=== PATIENT | male | born 1995 | race Two or more races ===

== ENCOUNTER 2019-02-04 09:29 | Emergency (ER) | payer SELFPAY ==
[2019-02-04 09:57] VITALS: BP 131/83
--- NOTE | 2019-02-04 10:27 | CR ---
[id number] RAD/RAD Ankle Right 2V; [id number] RAD/RAD Foot Right 3V Min Exam: RAD Ankle Right 2V, RAD Foot Right 3V Min Indication:PAIN TOP OF FOOT/ANKLE, NO TRAUMA. Comparison: No prior imaging for comparison. 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 Fragment measures approximately 5 mm craniocaudal dimension. Joint space remains well-preserved throughout the hindfoot. Valgus angulation of the second through fourth MTP joints. Bones are otherwise in normal alignment throughout the forefoot and midfoot. No acute fracture, AVN, or erosive changes. Joint spaces are well-preserved. Impression: No acute findings in the foot. Chronic findings, including prior deltoid avulsion injury are described above. Jake Hernandez MD 02/04/19 4111 Thank you for allowing us to participate in the care of your patient.
--- NOTE | 2019-02-04 11:01 | EDM.PDOC ---
ED HPI GENERAL MEDICAL PROBLEM - General Chief Complaint: Lower Extremity Injury/Pain Stated Complaint: RT ANKLE PAIN Time Seen by Provider: 02/04/19 09:34 Source of Information: Reports: Patient History Limitations: Reports: No Limitations - History of Present Illness INITIAL COMMENTS - FREE TEXT/NARRATIVE: PtJeimy presents to ER with complaints of pain to dorsal/lateral foot and ankle pain. He denies any trauma to the area. 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 He states that he has a lot of pain with flexion/extension of the ankle and with dorsiflexion/ plantarflexion of the foot. He denies spraining the ankle or any specific injury to the area. He states that the discomfort is located in the foot and ankle. He denies any pain to the knee, remainder of the lower leg or hip. He states that he has leg length discrepancy and sees a chiropractor for this. Onset: Today Onset Date: 02/04/19 Location: Reports: Lower Extremity, Right Quality: Reports: Ache, Throbbing Worsens with: Reports: Movement Treatments REFRIGERATION BRAZER/SOLDERER: Reports: Other (see below) Other Treatments REFRIGERATION BRAZER/SOLDERER: panadol voltaren cream Right Foot Pain Score (Numeric/FACES): 6 - Related Data Allergies Allergy/AdvReac Type Severity Reaction Status Date / Time indomethacin [From Indocin] Allergy Hives Verified 02/04/19 09:51 Penicillins Allergy Hives Verified 02/04/19 09:51 Home Meds: Home Meds . [No Known Home Meds] 11/29/15 [History] Past Medical History - Past Health History Medical/Surgical History: Denies Medical/Surgical History HEENT History: Reports: Otitis Media Cardiovascular History: Reports: None Respiratory History: Reports: None Gastrointestinal History: Reports: Hemorrhoids Genitourinary History: Reports: None Musculoskeletal History: Reports: Gout Neurological History: Reports: None Psychiatric History: Reports: None Endocrine/Metabolic History: Reports: None, Obesity/BMI 30+ Hematologic History: Reports: None Immunologic History: Reports: None Oncologic (Cancer) History: Reports: None Dermatologic History: Reports: Other (See Below) Other Dermatologic History: morphea - Infectious Disease History Infectious Disease History: Reports: None - Past Surgical History Head Surgeries/Procedures: Reports: None Musculoskeletal Surgical History: Reports: Other (See Below) Other Musculoskeletal Surgeries/Procedures:: vericose vein surgery Social & Family History - Family History Family Medical History: Noncontributory - Tobacco Use Smoking Status *Q: Never Smoker - Caffeine Use Caffeine Use: Reports: None - Recreational Drug Use Recreational Drug Use: No - Living Situation & Occupation Living situation: Reports: with Family Occupation: Employed Review of Systems - Review of Systems Review Of Systems: See Below Musculoskeletal: Reports: Joint Pain (ankle/foot) ED EXAM, GENERAL - Physical Exam Exam: See Below Extremities: Joint Swelling, Other (pain to R foot over the mid and lateral tarsal bones. Minimal swelling to the area. No crepitus. No erythema to the area. CMS intact to the extremity.) Course - Vital Signs Last Recorded V/S: Last Vital Signs Temp 37.4 C 02/04/19 09:30 Pulse 88 02/04/19 09:30 Resp 16 02/04/19 09:30 BP 131/83 02/04/19 09:30 Pulse Ox 100 02/04/19 09:30 - Orders/Labs/Meds Orders: Active Orders 24 hr Category Date Time Status Ankle 2V Rt [CR] Stat Exams 02/04/19 09:52 Ordered - Radiology Interpretation Free Text/Narrative:: Chronic deltoid avulsion at the tip of the medial malleolus. Fragment measures approx. 5 mm. Joint space preserved throughout hindfoot. Valgus angulation of 2nd through 4th MTP joints. Bones are otherwise aligned with no acute injury noted. No evidence of erosion or avascular necrosis noted. Departure - Departure Time of Disposition: 11:04 Disposition: Home, Self-Care 01 Clinical Impression: Right ankle instability - Discharge Information Instructions: Walking Boot, Adult, Subtalar Instability Referrals: PCP,None [Primary Care Provider] - Forms: ED Department Discharge Additional Instructions: Establish care locally. You will need a referral to podiatry. Wear boot especially if walking/bearing weight on the extremity. Elevate foot as much as possible. Ice painful area for 10-15 min every 1-2 hours. Naproxen 800mg every 8 hours for pain. - My Orders Last 24 Hours: My Active Orders 02/04/19 09:52 Ankle 2V Rt [CR] Stat - Assessment/Plan Last 24 Hours: My Active Orders 02/04/19 09:52 Ankle 2V Rt [CR] Stat Plan: Establish care locally. You will need a referral to podiatry. Wear boot especially if walking/bearing weight on the extremity. Elevate foot as much as possible. Ice painful area for 10-15 min every 1-2 hours. Naproxen 800mg every 8 hours for pain.
== END 2019-02-04 11:15 | disposition home or self-care (01) ==
LOC: VM.ED 09:29
DX: M25.571 Pain in right ankle and joints of right foot (principal); Z88.0 Allergy status to penicillin; Z88.8 Allergy status to other drugs, medicaments and biological substances
CPT/HCPCS: 73600-RT; 73630-RT; 99283-25

== ENCOUNTER 2019-10-06 06:45 | Emergency (ER) | payer BC ==
[2019-10-06 06:59] VITALS: BP 108/78; PULSE 68
[2019-10-06] MEDS ORDERED: Ketorolac 60 MG/2 ML SDV IM ONE (07:05)
--- NOTE | 2019-10-06 07:12 | EDM.PDOC ---
ED HPI GENERAL MEDICAL PROBLEM - General Chief Complaint: Abdominal Pain Stated Complaint: Abdominal pain Time Seen by Provider: 10/06/19 07:00 Source of Information: Reports: Patient History Limitations: Reports: No Limitations - History of Present Illness INITIAL COMMENTS - FREE TEXT/NARRATIVE: RUQ abdominal pain started at 0500. He took some pepcid and antonette tea and now it is feeling better. He was here 08/05 for same complaints, labs were done but he refused any other testing. stated they gave me a bunch of narcotics. Today again he is refusing most interventions. Onset: Today Location: Reports: Abdomen (RUQ radiating to his back) Quality: Reports: Ache, Burning Severity: Moderate Improves with: Reports: None Worsens with: Reports: None Associated Symptoms: Reports: No Other Symptoms Right Upper Abdomen Pain Score (Numeric/FACES): 7 - Related Data Allergies Allergy/AdvReac Type Severity Reaction Status Date / Time indomethacin [From Indocin] Allergy Hives Verified 10/06/19 06:53 Penicillins Allergy Hives Verified 10/06/19 06:53 Home Meds: Home Meds . [No Known Home Meds] 11/29/15 [History] Past Medical History - Past Health History Medical/Surgical History: Denies Medical/Surgical History HEENT History: Reports: Otitis Media Cardiovascular History: Reports: None Respiratory History: Reports: None Gastrointestinal History: Reports: Hemorrhoids Genitourinary History: Reports: None Musculoskeletal History: Reports: Gout Neurological History: Reports: None Psychiatric History: Reports: None Endocrine/Metabolic History: Reports: None, Obesity/BMI 30+ Hematologic History: Reports: None Immunologic History: Reports: None Oncologic (Cancer) History: Reports: None Dermatologic History: Reports: Other (See Below) Other Dermatologic History: morphea - Infectious Disease History Infectious Disease History: Reports: None - Past Surgical History Head Surgeries/Procedures: Reports: None Musculoskeletal Surgical History: Reports: Other (See Below) Other Musculoskeletal Surgeries/Procedures:: vericose vein surgery Social & Family History - Family History Family Medical History: Noncontributory - Caffeine Use Caffeine Use: Reports: None - Living Situation & Occupation Living situation: Reports: with Family Occupation: Employed ED ROS GENERAL - Review of Systems Review Of Systems: See Below Constitutional: Reports: No Symptoms Respiratory: Reports: No Symptoms Cardiovascular: Reports: No Symptoms Endocrine: Reports: No Symptoms GI/Abdominal: Reports: Abdominal Pain ED EXAM, GI/ABD - Physical Exam Exam: See Below Exam Limited By: No Limitations Respiratory/Chest: Lungs Clear Cardiovascular: Regular Rate, Rhythm GI/Abdominal Exam: Normal Bowel Sounds, Soft, Tender (epigastric area and RUQ ) Course - Vital Signs Last Recorded V/S: Last Vital Signs Temp 36.2 C 10/06/19 06:45 Pulse 68 10/06/19 06:45 Resp 16 10/06/19 06:45 BP 108/78 10/06/19 06:45 Pulse Ox 98 10/06/19 06:45 - Orders/Labs/Meds Meds: Medications Discontinued Medications Generic Name Dose Route Start Last Admin Trade Name Freq PRN Reason Stop Dose Admin Ketorolac Tromethamine 60 mg 10/06/19 07:05 Toradol IM 10/06/19 07:06 ONETIME ONE - Re-Assessments/Exams Free Text/Narrative Re-Assessment/Exam: 10/06/19 07:14 Patient offered a GI cocktail but refused. He did agree to toradol injection. Stated he would be willing to do an abdominal ultrasound however this is not available today. Departure - Departure Time of Disposition: 07:35 Disposition: Home, Self-Care 01 Condition: Good Clinical Impression: Cholecystitis Acid reflux disease Qualifiers: Esophagitis presence: with esophagitis Qualified Code(s): K21.0 - Gastro- esophageal reflux disease with esophagitis - Discharge Information *PRESCRIPTION DRUG MONITORING PROGRAM REVIEWED*: No *COPY OF PRESCRIPTION DRUG MONITORING REPORT IN PATIENT DORIAN: No Instructions: Heartburn, [id number] Sepsis Event Note - Evaluation Sepsis Screening Result: No Definite Risk - Focused Exam Vital Signs: Vital Signs Temp Pulse Resp BP Pulse Ox 10/06/19 06:45 36.2 C 68 16 108/78 98 Date Exam was Performed: 10/06/19 Time Exam was Performed: 07:07
== END 2019-10-06 07:25 | disposition home or self-care (01) ==
LOC: VM.ED 06:45
DX: K21.0 Gastro-esophageal reflux disease with esophagitis (principal); K81.9 Cholecystitis, unspecified; M10.9 Gout, unspecified; E66.9 Obesity, unspecified; Z68.33 Body mass index [BMI] 33.0-33.9, adult; Z88.0 Allergy status to penicillin; Z88.8 Allergy status to other drugs, medicaments and biological substances
CPT/HCPCS: 96372; 99283-25; J1885

== ENCOUNTER 2019-10-16 03:07 | Emergency (ER) | payer BC ==
[2019-10-16 03:12] VITALS: BP 134/77; PULSE 74
[2019-10-16] MEDS: methylPREDNISolone Sodium Succinate 125 MG/2 ML SDV IVPUSH ONE (03:33)
[2019-10-16] MEDS: Take Home: Acetaminophen/Codeine 300 MG/30 MG, 5 Tab Pack PO ONE (03:33)
[2019-10-16] MEDS: Ketorolac 30 MG/ML SDV IM ONE (03:33)
--- NOTE | 2019-10-16 04:59 | EDM.PDOC ---
ED HPI GENERAL MEDICAL PROBLEM - General Chief Complaint: Lower Extremity Injury/Pain Stated Complaint: gout flareup Time Seen by Provider: 10/16/19 03:22 Source of Information: Reports: Patient History Limitations: Reports: No Limitations - History of Present Illness INITIAL COMMENTS - FREE TEXT/NARRATIVE: Pt. presents to ER with L great toe pain. Pt. states that he has a history of gout and states that he is having a flare-up. Denies any redness to the area. No fever or chills. Denies any trauma to the area. He states that his last flare -up was approx. a year ago. Onset: Today Onset Date: 10/16/19 Location: Reports: Lower Extremity, Left Quality: Reports: Sharp, Throbbing Left Toe-Hailux Pain Score (Numeric/FACES): 9 - Related Data Allergies Allergy/AdvReac Type Severity Reaction Status Date / Time indomethacin [From Indocin] Allergy Swelling Verified 10/16/19 03:08 Penicillins Allergy Hives Verified 10/16/19 03:08 Home Meds: Home Meds Black Elder Holcomb 1 tab PO BID 10/16/19 [History] Past Medical History - Past Health History Medical/Surgical History: Denies Medical/Surgical History HEENT History: Reports: Otitis Media Cardiovascular History: Reports: None Respiratory History: Reports: None Gastrointestinal History: Reports: Hemorrhoids Genitourinary History: Reports: None Musculoskeletal History: Reports: Gout Neurological History: Reports: None Psychiatric History: Reports: None Endocrine/Metabolic History: Reports: None, Obesity/BMI 30+ Hematologic History: Reports: None Immunologic History: Reports: None Oncologic (Cancer) History: Reports: None Dermatologic History: Reports: Other (See Below) Other Dermatologic History: morphea - Infectious Disease History Infectious Disease History: Reports: None - Past Surgical History Head Surgeries/Procedures: Reports: None Musculoskeletal Surgical History: Reports: Other (See Below) Other Musculoskeletal Surgeries/Procedures:: vericose vein surgery Social & Family History - Family History Family Medical History: Noncontributory - Tobacco Use Smoking Status *Q: Never Smoker - Caffeine Use Caffeine Use: Reports: None - Living Situation & Occupation Living situation: Reports: with Family Occupation: Employed Review of Systems - Review of Systems Review Of Systems: Comprehensive ROS is negative, except as noted in HPI. ED EXAM, GENERAL - Physical Exam Exam: See Below Extremities: Normal Inspection, Limited Range of Motion, Other (Pain with palpation/movement of L great toe.) Course - Vital Signs Last Recorded V/S: Last Vital Signs Temp 36.2 C 10/16/19 03:09 Pulse 74 10/16/19 03:09 Resp 18 10/16/19 03:09 BP 134/77 10/16/19 03:09 Pulse Ox 98 10/16/19 03:09 - Orders/Labs/Meds Meds: Medications Discontinued Medications Generic Name Dose Route Start Last Admin Trade Name Tank PRN Reason Stop Dose Admin Acetaminophen/Codeine Phosphate 1 packet 10/16/19 03:25 10/16/19 03:33 Take Home: Acetam/Codeine 300-30 Mg, 5 Pack PO 10/16/19 03:26 1 packet ONETIME ONE Administration Ketorolac Tromethamine 30 mg 10/16/19 03:25 10/16/19 03:33 Toradol IM 10/16/19 03:26 30 mg ONETIME ONE Administration Methylprednisolone Sodium Succinate 125 mg 10/16/19 03:24 10/16/19 03:33 Solu-Medrol IVPUSH 10/16/19 03:25 125 mg ONETIME ONE Administration Departure - Departure Time of Disposition: 04:00 Disposition: Home, Self-Care 01 Clinical Impression: Gout - Discharge Information Instructions: Gout, [id number], Naproxen and naproxen sodium oral immediate- release tablets, Prednisone tablets Referrals: PCP,Unobtain [Primary Care Provider] - Forms: ED Department Discharge Additional Instructions: Naproxen 500mg 1 twice daily as needed for pain Tylenol #3 1 every 6 hours as needed for pain Medrol dose melinda Take as prescribed on the package Drink plenty of fluids Follow-up in clinic in 7-10 days Sepsis Event Note - Evaluation Sepsis Screening Result: No Definite Risk - Focused Exam Vital Signs: Vital Signs Temp Pulse Resp BP Pulse Ox 10/16/19 03:09 36.2 C 74 18 134/77 98 Date Exam was Performed: 10/16/19 Time Exam was Performed: 04:55 - Assessment/Plan Plan: Naproxen 500mg 1 twice daily as needed for pain Tylenol #3 1 every 6 hours as needed for pain Medrol dose melinda Take as prescribed on the package Drink plenty of fluids Follow-up in clinic in 7-10 days
== END 2019-10-16 04:04 | disposition home or self-care (01) ==
LOC: VM.ED 03:07
DX: M10.9 Gout, unspecified (principal); Z88.0 Allergy status to penicillin; Z88.6 Allergy status to analgesic agent
CPT/HCPCS: 96372; 96374; 99283; A9270; J1885; J2930

== ENCOUNTER 2019-11-30 06:58 | Emergency (ER) | payer BC ==
[2019-11-30] MEDS ORDERED: Sodium Chloride 0.9% 10 ML Syringe FLUSH PRN (07:20)
--- NOTE | 2019-11-30 07:38 | EDM.PDOC ---
<ZandraDonnie dutton W - Last Filed: 11/30/19 07:49> ED HPI GENERAL MEDICAL PROBLEM - General Stated Complaint: ABDOMAL PAIN RT SIDE BACK Time Seen by Provider: 11/30/19 07:00 Source of Information: Reports: Patient History Limitations: Reports: No Limitations - History of Present Illness INITIAL COMMENTS - FREE TEXT/NARRATIVE: Pt. presents to ER with acute onset severe RUQ abdominal pain today. He states that this started approx. 1 hour before coming in to ER. Pt. states that he has had discomfort similar to this in the past and has been told it is caused by his gallbladder. He has not eaten today, but states that the symptoms are often present postprandially after a fatty meal. Pt. denies any dark colored urine. No chhaya-colored stools. Pt. has not had any ultrasound or other imaging of his abdomen to determine conclusively the cause of his discomfort. Pt. denies any substernal chest pain. No jaw, arm, neck or back pain. No fever or chills. He does complain of nausea. He states that he does not have a PCP, but would like his test results forwarded to [facility] as he wants surgery there if it is his gallbladder. Onset: Today Location: Reports: Abdomen Quality: Reports: Sharp, Stabbing Severity: Severe Worsens with: Reports: Eating Associated Symptoms: Reports: Nausea/Vomiting. Denies: Confusion, Chest Pain, Cough, Diaphoresis, Fever/Chills, Rash, Shortness of Breath - Related Data Allergies Allergy/AdvReac Type Severity Reaction Status Date / Time indomethacin [From Indocin] Allergy Swelling Verified 11/30/19 07:50 Penicillins Allergy Hives Verified 11/30/19 07:50 Home Meds: Home Meds Black Elder Holcomb 1 tab PO BID 10/16/19 [History] Past Medical History - Past Health History Medical/Surgical History: Denies Medical/Surgical History HEENT History: Reports: Otitis Media Cardiovascular History: Reports: None Respiratory History: Reports: None Gastrointestinal History: Reports: Hemorrhoids Genitourinary History: Reports: None Musculoskeletal History: Reports: Gout Neurological History: Reports: None Psychiatric History: Reports: None Endocrine/Metabolic History: Reports: None, Obesity/BMI 30+ Hematologic History: Reports: None Immunologic History: Reports: None Oncologic (Cancer) History: Reports: None Dermatologic History: Reports: Other (See Below) Other Dermatologic History: morphea - Infectious Disease History Infectious Disease History: Reports: None - Past Surgical History Head Surgeries/Procedures: Reports: None Musculoskeletal Surgical History: Reports: Other (See Below) Other Musculoskeletal Surgeries/Procedures:: vericose vein surgery Social & Family History - Family History Family Medical History: Noncontributory - Caffeine Use Caffeine Use: Reports: None - Living Situation & Occupation Living situation: Reports: with Family Occupation: Employed ED ROS GENERAL - Review of Systems Review Of Systems: See Below Constitutional: Reports: No Symptoms. Denies: Fever, Chills HEENT: Reports: No Symptoms Respiratory: Reports: No Symptoms Cardiovascular: Reports: No Symptoms Endocrine: Reports: No Symptoms GI/Abdominal: Reports: Abdominal Pain, Nausea, Vomiting. Denies: Black Stool, Bloody Stool, Constipation, Diarrhea, Distension, Hematemesis, Hematochezia, Melena : Reports: No Symptoms Musculoskeletal: Reports: No Symptoms Skin: Reports: No Symptoms Neurological: Reports: No Symptoms Psychiatric: Reports: No Symptoms Hematologic/Lymphatic: Reports: No Symptoms Immunologic: Reports: No Symptoms ED EXAM, GENERAL - Physical Exam Exam: See Below Exam Limited By: No Limitations General Appearance: Alert, WD/WN, No Apparent Distress Eye Exam: Bilateral Eye: EOMI, PERRL Nose: Normal Inspection, No Blood Throat/Mouth: Normal Inspection, Normal Lips, Normal Teeth, Normal Gums, Normal Oropharynx, Normal Voice, No Airway Compromise Head: Atraumatic, Normocephalic Respiratory/Chest: No Respiratory Distress, Lungs Clear, Normal Breath Sounds, No Accessory Muscle Use, Chest Non-Tender Cardiovascular: Normal Peripheral Pulses, Regular Rate, Rhythm, No Edema, No Gallop, No JVD, No Murmur, No Rub Peripheral Pulses: 4+: Radial (L) GI/Abdominal: Soft, No Organomegaly, No Mass, Guarding, Tender (+ Westbrook's sign) . No: Mass (Male) Exam: Deferred Rectal (Males) Exam: Deferred Back Exam: Normal Inspection, Full Range of Motion Extremities: Normal Inspection, Normal Range of Motion, Non-Tender, No Pedal Edema, Normal Capillary Refill Neurological: Alert, Oriented, CN II-XII Intact, Normal Cognition, Normal Gait, Normal Reflexes, No Motor/Sensory Deficits Psychiatric: Normal Affect, Normal Mood Skin Exam: Warm, Dry, Intact, Normal Color, Pallor Course - Vital Signs Last Recorded V/S: Last Vital Signs Temp 37.0 C 11/30/19 07:05 Pulse 67 11/30/19 07:05 Resp 16 11/30/19 07:05 BP 136/75 11/30/19 07:05 Pulse Ox 97 11/30/19 07:05 - Orders/Labs/Meds Orders: Active Orders 24 hr Category Date Time Status Sodium Chloride 0.9% [Saline Flush] Med 11/30/19 07:20 Active 10 ml FLUSH ASDIRECTED PRN Peripheral IV Insertion Adult [OM.PC] Routine Oth 11/30/19 07:21 Ordered Medication Orders Sodium Chloride (Saline Flush) 10 ml FLUSH ASDIRECTED PRN PRN Reason: Keep Vein Open Labs: Laboratory Tests 11/30/19 11/30/19 11/30/19 Range/Units 07:35 07:35 07:35 WBC 9.1 (4.0-10.0) x10^3/uL RBC 5.15 (4.5-6.0) x10^6/uL Hgb 15.7 (14.0-18.0) g/dL Hct 45.4 (40.0-52.0) % MCV 88.2 (78.0-93.0) fL MCH 30.5 (26.0-32.0) pg MCHC 34.6 (32.0-36.0) g/dL RDW Coeff of Juan Carlos 12.8 (10.0-15.0) % Plt Count 261 (130-400) x10^3/uL Neut % (Auto) 56.8 (50.0-80.0) % Lymph % (Auto) 32.9 (25.0-50.0) % Jackson % (Auto) 8.0 (2.0-11.0) % Eos % (Auto) 2.0 (0.0-4.0) % Baso % (Auto) 0.3 (0.2-1.2) % PT 10.0 (10.0-12.8) SEC INR 0.9 L (2.0-3.5) Sodium 142 (136-145) mmol/L Potassium 3.6 (3.5-5.1) mmol/L Chloride 105 (98-107) mmol/L Carbon Dioxide 29 (21-32) mmol/L Anion Gap 11.6 (10-20) mmol/L BUN 19 H (7-18) mg/dL Creatinine 1.3 (0.70-1.30) mg/dL Est Cr Clr Drug Dosing 108.52 mL/min Estimated GFR (MDRD) > 60 Glucose 95 (74-106) mg/dL Calcium 8.6 (8.5-10.1) mg/dL Corrected Calcium 8.92 (8.5-10.1) mg/dL Magnesium 1.9 (1.8-2.4) mg/dL Total Bilirubin 0.3 (0.2-1.0) mg/dL AST 16 (15-37) U/L ALT 32 (16-63) U/L Alkaline Phosphatase 56 (46-116) U/L C-Reactive Protein 0.3 (<=0.9) mg/dL Total Protein 7.3 (6.4-8.2) g/dL Albumin 3.6 (3.4-5.0) g/dL Globulin 3.7 Albumin/Globulin Ratio 0.97 Amylase 38 (25-115) U/L Lipase 141 (73-393) U/L Urine Color (YELLOW) Urine Appearance (CLEAR) Urine pH (5.0-8.0) Ur Specific Jesse Urine Protein (NEGATIVE) mg/dL Urine Glucose (UA) (NEGATIVE) mg/dL Urine Ketones (NEGATIVE) mg/dL Urine Occult Blood (NEGATIVE) Urine Nitrite (NEGATIVE) Urine Bilirubin (NEGATIVE) Urine Urobilinogen (0.2) EU/dL Ur Leukocyte Esterase (NEGATIVE) 11/30/19 Range/Units 08:49 WBC (4.0-10.0) x10^3/uL RBC (4.5-6.0) x10^6/uL Hgb (14.0-18.0) g/dL Hct (40.0-52.0) % MCV (78.0-93.0) fL MCH (26.0-32.0) pg MCHC (32.0-36.0) g/dL RDW Coeff of Juan Carlos (10.0-15.0) % Plt Count (130-400) x10^3/uL Neut % (Auto) (50.0-80.0) % Lymph % (Auto) (25.0-50.0) % Jackson % (Auto) (2.0-11.0) % Eos % (Auto) (0.0-4.0) % Baso % (Auto) (0.2-1.2) % PT (10.0-12.8) SEC INR (2.0-3.5) Sodium (136-145) mmol/L Potassium (3.5-5.1) mmol/L Chloride (98-107) mmol/L Carbon Dioxide (21-32) mmol/L Anion Gap (10-20) mmol/L BUN (7-18) mg/dL Creatinine (0.70-1.30) mg/dL Est Cr Clr Drug Dosing mL/min Estimated GFR (MDRD) Glucose (74-106) mg/dL Calcium (8.5-10.1) mg/dL Corrected Calcium (8.5-10.1) mg/dL Magnesium (1.8-2.4) mg/dL Total Bilirubin (0.2-1.0) mg/dL AST (15-37) U/L ALT (16-63) U/L Alkaline Phosphatase (46-116) U/L C-Reactive Protein (<=0.9) mg/dL Total Protein (6.4-8.2) g/dL Albumin (3.4-5.0) g/dL Globulin Albumin/Globulin Ratio Amylase (25-115) U/L Lipase (73-393) U/L Urine Color Yellow (YELLOW) Urine Appearance Clear (CLEAR) Urine pH 5.5 (5.0-8.0) Ur Specific Jesse >=1.030 Urine Protein Negative (NEGATIVE) mg/dL Urine Glucose (UA) Negative (NEGATIVE) mg/dL Urine Ketones Negative (NEGATIVE) mg/dL Urine Occult Blood Negative (NEGATIVE) Urine Nitrite Negative (NEGATIVE) Urine Bilirubin Negative (NEGATIVE) Urine Urobilinogen 0.2 (0.2) EU/dL Ur Leukocyte Esterase Negative (NEGATIVE) Meds: Medications Generic Name Dose Route Start Last Admin Trade Name Freq PRN Reason Stop Dose Admin Sodium Chloride 10 ml 11/30/19 07:20 Saline Flush FLUSH ASDIRECTED PRN Keep Vein Open Discontinued Medications Generic Name Dose Route Start Last Admin Trade Name Freq PRN Reason Stop Dose Admin Hydromorphone HCl 1 mg 11/30/19 07:22 11/30/19 07:40 Dilaudid IVPUSH 11/30/19 07:23 1 mg ONETIME ONE Administration Sodium Chloride 1,000 mls @ 1,000 mls/hr 11/30/19 07:22 11/30/19 07:39 Normal Saline IV 11/30/19 08:21 1,000 mls/hr .BOLUS ONE Administration Ketorolac Tromethamine 15 mg 11/30/19 07:23 11/30/19 07:39 Toradol IVPUSH 11/30/19 07:24 15 mg ONETIME ONE Administration Ondansetron HCl 4 mg 11/30/19 07:22 11/30/19 07:40 Zofran IVPUSH 11/30/19 07:23 4 mg ONETIME ONE Administration Departure - Departure Disposition: Home, Self-Care 01 Clinical Impression: RUQ pain - Discharge Information Instructions: Cholelithiasis, [id number], Gallbladder Eating Plan Referrals: PCP,None [Primary Care Provider] - Forms: ED Department Discharge, ED Return to Work/School Form Additional Instructions: Nothing to eat or drink after you leave the ED and return at 1pm for an Ultrasound of the gallbladder. I will visit with you after the US is done and talk further about the plan. After your visit, low fat diet and stay away from spicy food. Increase fluids as much as possible. Tylenol and or ibuprofen as needed for pain. If pain not controlled with above. Superior 5/325, 1 tablet every 6 hrs with food as needed for pain. Caution sedation. RX given to the patient. #12. Return to the ED if new or worsening symptoms. Follow up with PCP in the next 4-6 days if not improving sooner if worse. Sepsis Event Note - Focused Exam Vital Signs: Vital Signs Temp Pulse Resp BP Pulse Ox 11/30/19 07:05 37.0 C 67 16 136/75 97 Date Exam was Performed: 11/30/19 Time Exam was Performed: 07:49 <Jonny Castillo - Last Filed: 11/30/19 10:13> ED EXAM, GENERAL - Physical Exam GI/Abdominal: Tender Course - Re-Assessments/Exams Free Text/Narrative Re-Assessment/Exam: 11/30/19 10:08 Assumed care of the patient at 0800 from Donnie Silva PA-C. Please see his note assessment that I agree with and also his treatments previous. THe patient is now resting pain free. HIs abd is soft none tender negative Owings sign. NO nausea no vomiting. I reviewed his normal lab results with the patient. This is most likely biliary colic. Will discharge NPO at this time and US at 1300 today and follow up accordingly. He is comfortable with this plan and his questions answered. Departure - Departure Time of Disposition: 09:00 Sepsis Event Note - Focused Exam Date Exam was Performed: 11/30/19 Time Exam was Performed: 10:08
[2019-11-30] MEDS: Ketorolac 15 MG/ML SDV IVPUSH ONE (07:39)
[2019-11-30] MEDS: Sodium Chloride 0.9% 1,000 ML IV ONE (07:39)
[2019-11-30] MEDS: Ondansetron 4 MG/2 ML SDV IVPUSH ONE (07:40)
[2019-11-30] MEDS: HYDROmorphone 1 MG/ML Syringe IVPUSH ONE (07:40)
[2019-11-30 07:57] VITALS: BP 136/75; PULSE 67
[2019-11-30 08:07] LABS: CHLORIDE,CL 105 mmol/L (98-107); SODIUM,NA 142 mmol/L (136-145)
[2019-11-30 08:08] LABS: ANION GAP 11.6 mmol/L (10-20)
[2019-12-05] MEDS ORDERED: SUMAtriptan 6 MG/0.5 ML SDV SUBCUT ONE (13:41)
[2019-12-05] MEDS ORDERED: LORazepam 2 MG/ML SDV IVPUSH ONE (13:41)
[2019-12-05] MEDS ORDERED: Ketorolac 30 MG/ML SDV IVPUSH ONE (13:41)
== END 2019-11-30 09:30 | disposition home or self-care (01) ==
LOC: VM.ED 06:58
DX: R10.11 Right upper quadrant pain (principal); E66.9 Obesity, unspecified; Z68.42 Body mass index [BMI] 45.0-49.9, adult; Z88.0 Allergy status to penicillin; Z88.8 Allergy status to other drugs, medicaments and biological substances
CPT/HCPCS: 36415; 80053; 81003; 82150; 83690; 83735; 85025; 85610; 86140; 96361; 96374; 96375; 99284-25; J1170; J1885; J2405; J7030

== ENCOUNTER 2020-01-04 06:41 | Emergency (ER) | payer BC ==
[2020-01-04] MEDS ORDERED: Sodium Chloride 0.9% 10 ML Syringe FLUSH PRN (06:49)
--- NOTE | 2020-01-04 06:54 | EDM.PDOC ---
ED HPI GENERAL MEDICAL PROBLEM - General Chief Complaint: Abdominal Pain Stated Complaint: Gallbladder Attack Time Seen by Provider: 01/04/20 06:45 Source of Information: Reports: Patient History Limitations: Reports: No Limitations - History of Present Illness INITIAL COMMENTS - FREE TEXT/NARRATIVE: Pt. presents to ER with complaints of RUQ abdominal pain. Pt. has a diagnosed history of cholelithiasis and was seen for a flare-up of pain on November 29. He underwent a gallbladder US that day and was diagnosed with cholelithiasis without cholecystitis. He states that he saw Dr. Acuna, surgeon at [facility], but has deferred having surgery at this time, as his significant other recently underwent meniscus surgery. Pt. states that he last ate at approx. 9PM, and it included sandwiches and canned pasta. He states that the discomfort started this AM, but he denies eating today. Denies any fever or chills. Complains of nausea but no vomiting. Denies any substernal chest pain, shortness of breath, or other worrisome signs or symptoms. Onset: Today Onset Date: 01/04/20 Onset Time: 05:00 Location: Reports: Abdomen Severity: Severe - Related Data Allergies Allergy/AdvReac Type Severity Reaction Status Date / Time indomethacin [From Indocin] Allergy Swelling Verified 01/04/20 06:49 Penicillins Allergy Hives Verified 01/04/20 06:49 Home Meds: Home Meds Black Elder Holcomb 1 tab PO BID 10/16/19 [History] Past Medical History - Past Health History Medical/Surgical History: Denies Medical/Surgical History HEENT History: Reports: Otitis Media Cardiovascular History: Reports: None Respiratory History: Reports: None Gastrointestinal History: Reports: Hemorrhoids Genitourinary History: Reports: None Musculoskeletal History: Reports: Gout Neurological History: Reports: None Psychiatric History: Reports: None Endocrine/Metabolic History: Reports: None, Obesity/BMI 30+ Hematologic History: Reports: None Immunologic History: Reports: None Oncologic (Cancer) History: Reports: None Dermatologic History: Reports: Other (See Below) Other Dermatologic History: morphea - Infectious Disease History Infectious Disease History: Reports: None - Past Surgical History Head Surgeries/Procedures: Reports: None Musculoskeletal Surgical History: Reports: Other (See Below) Other Musculoskeletal Surgeries/Procedures:: vericose vein surgery Social & Family History - Family History Family Medical History: Noncontributory - Caffeine Use Caffeine Use: Reports: None - Living Situation & Occupation Living situation: Reports: with Family Occupation: Employed Course - Orders/Labs/Meds Orders: Active Orders 24 hr Category Date Time Status CBC WITH AUTO DIFF [HEME] Stat Lab 01/04/20 06:48 Ordered COMPREHENSIVE METABOLIC PN,CMP [CHEM] Stat Lab 01/04/20 06:48 Ordered CRP [C-REACTIVE PROTEIN] [CHEM] Stat Lab 01/04/20 06:48 Ordered INR,PT,PROTHROMBIN TIME [COAG] Stat Lab 01/04/20 06:48 Ordered MAGNESIUM [CHEM] Stat Lab 01/04/20 06:48 Ordered Sodium Chloride 0.9% [Saline Flush] Med 01/04/20 06:49 Active 10 ml FLUSH ASDIRECTED PRN Peripheral IV Insertion Adult [OM.PC] Routine Oth 01/04/20 06:49 Ordered Medication Orders Sodium Chloride (Saline Flush) 10 ml FLUSH ASDIRECTED PRN PRN Reason: Keep Vein Open Meds: Medications Generic Name Dose Route Start Last Admin Trade Name Freq PRN Reason Stop Dose Admin Sodium Chloride 10 ml 01/04/20 06:49 Saline Flush FLUSH ASDIRECTED PRN Keep Vein Open Discontinued Medications Generic Name Dose Route Start Last Admin Trade Name Freq PRN Reason Stop Dose Admin Ketorolac Tromethamine 15 mg 01/04/20 06:49 Toradol IVPUSH 01/04/20 06:50 ONETIME ONE Ondansetron HCl 4 mg 01/04/20 06:49 Zofran IVPUSH 01/04/20 06:50 ONETIME ONE Departure - Discharge Information Referrals: Maximo Caraballo NP [Primary Care Provider] - Forms: ED Department Discharge Sepsis Event Note - Focused Exam Date Exam was Performed: 01/04/20 Time Exam was Performed: 06:55 - My Orders Last 24 Hours: My Active Orders 01/04/20 06:48 CBC WITH AUTO DIFF [HEME] Stat COMPREHENSIVE METABOLIC PN,CMP [CHEM] Stat CRP [C-REACTIVE PROTEIN] [CHEM] Stat INR,PT,PROTHROMBIN TIME [COAG] Stat MAGNESIUM [CHEM] Stat 01/04/20 06:49 Sodium Chloride 0.9% [Saline Flush] 10 ml FLUSH ASDIRECTED PRN Peripheral IV Insertion Adult [OM.PC] Routine - Assessment/Plan Last 24 Hours: My Active Orders 01/04/20 06:48 CBC WITH AUTO DIFF [HEME] Stat COMPREHENSIVE METABOLIC PN,CMP [CHEM] Stat CRP [C-REACTIVE PROTEIN] [CHEM] Stat INR,PT,PROTHROMBIN TIME [COAG] Stat MAGNESIUM [CHEM] Stat 01/04/20 06:49 Sodium Chloride 0.9% [Saline Flush] 10 ml FLUSH ASDIRECTED PRN Peripheral IV Insertion Adult [OM.PC] Routine
[2020-01-04] MEDS: Ondansetron 4 MG/2 ML SDV IVPUSH ONE (06:55)
[2020-01-04] MEDS: Ketorolac 15 MG/ML SDV IVPUSH ONE (06:59)
--- NOTE | 2020-01-04 07:01 | EDM.PDOC ---
<ZandraDonnie dutton W - Last Filed: 01/04/20 07:00> ED HPI GENERAL MEDICAL PROBLEM - General Chief Complaint: Abdominal Pain Stated Complaint: Gallbladder Attack Time Seen by Provider: 01/04/20 06:45 Source of Information: Reports: Patient History Limitations: Reports: No Limitations - History of Present Illness INITIAL COMMENTS - FREE TEXT/NARRATIVE: Pt. presents to ER with complaints of RUQ abdominal pain. Pt. has a diagnosed history of cholelithiasis and was seen for a flare-up of pain on November 29. He underwent a gallbladder US that day and was diagnosed with cholelithiasis without cholecystitis. He states that he saw Dr. Acuna, surgeon at , but has deferred having surgery at this time, as his significant other recently underwent meniscus surgery. Pt. states that he last ate at approx. 9PM, and it included sandwiches and canned pasta. He states that the discomfort started this AM, but he denies eating today. Denies any fever or chills. Complains of nausea but no vomiting. Denies any substernal chest pain, shortness of breath, or other worrisome signs or symptoms. Onset: Today Onset Date: 01/04/20 Onset Time: 05:00 Location: Reports: Abdomen Severity: Severe - Related Data Allergies Allergy/AdvReac Type Severity Reaction Status Date / Time indomethacin [From Indocin] Allergy Swelling Verified 01/04/20 06:49 Penicillins Allergy Hives Verified 01/04/20 06:49 Home Meds: Home Meds Black Elder Holcomb 1 tab PO BID 10/16/19 [History] Ibuprofen 800 mg PO Q8H #60 tablet 01/04/20 [Rx] Ondansetron [Zofran ODT] 4 mg PO Q4H PRN #30 tab.dis 01/04/20 [Rx] Past Medical History - Past Health History Medical/Surgical History: Denies Medical/Surgical History HEENT History: Reports: Otitis Media Cardiovascular History: Reports: None Respiratory History: Reports: None Gastrointestinal History: Reports: Hemorrhoids Genitourinary History: Reports: None Musculoskeletal History: Reports: Gout Neurological History: Reports: None Psychiatric History: Reports: None Endocrine/Metabolic History: Reports: None, Obesity/BMI 30+ Hematologic History: Reports: None Immunologic History: Reports: None Oncologic (Cancer) History: Reports: None Dermatologic History: Reports: Other (See Below) Other Dermatologic History: morphea - Infectious Disease History Infectious Disease History: Reports: None - Past Surgical History Head Surgeries/Procedures: Reports: None Musculoskeletal Surgical History: Reports: Other (See Below) Other Musculoskeletal Surgeries/Procedures:: vericose vein surgery Social & Family History - Family History Family Medical History: Noncontributory - Caffeine Use Caffeine Use: Reports: None - Living Situation & Occupation Living situation: Reports: with Family Occupation: Employed ED EXAM, GENERAL - Physical Exam Free Text/Narrative:: Pt. presents to ER with complaints of RUQ abdominal pain. Pt. has a diagnosed history of cholelithiasis and was seen for a flare-up of pain on November 29. He underwent a gallbladder US that day and was diagnosed with cholelithiasis without cholecystitis. He states that he saw Dr. Acuna, surgeon at , but has deferred having surgery at this time, as his significant other recently underwent meniscus surgery. Pt. states that he last ate at approx. 9PM, and it included sandwiches and canned pasta. He states that the discomfort started this AM, but he denies eating today. Denies any fever or chills. Complains of nausea but no vomiting. Denies any substernal chest pain, shortness of breath, or other worrisome signs or symptoms. Course - Orders/Labs/Meds Orders: Active Orders 24 hr Category Date Time Status Sodium Chloride 0.9% [Saline Flush] Med 01/04/20 06:49 Active 10 ml FLUSH ASDIRECTED PRN Peripheral IV Insertion Adult [OM.PC] Routine Oth 01/04/20 06:49 Ordered Medication Orders Sodium Chloride (Saline Flush) 10 ml FLUSH ASDIRECTED PRN PRN Reason: Keep Vein Open Labs: Laboratory Tests 01/04/20 01/04/20 01/04/20 Range/Units 06:55 06:55 06:55 WBC 8.0 (4.0-10.0) x10^3/uL RBC 5.37 (4.5-6.0) x10^6/uL Hgb 16.4 (14.0-18.0) g/dL Hct 45.8 (40.0-52.0) % MCV 85.3 (78.0-93.0) fL MCH 30.5 (26.0-32.0) pg MCHC 35.8 (32.0-36.0) g/dL RDW Coeff of Juan Carlos 12.2 (10.0-15.0) % Plt Count 274 (130-400) x10^3/uL Neut % (Auto) 53.8 (50.0-80.0) % Lymph % (Auto) 35.1 (25.0-50.0) % Ashley % (Auto) 8.2 (2.0-11.0) % Eos % (Auto) 2.5 (0.0-4.0) % Baso % (Auto) 0.4 (0.2-1.2) % PT 9.9 L (10.0-12.8) SEC INR 0.9 L (2.0-3.5) Sodium 142 (136-145) mmol/L Potassium 3.9 (3.5-5.1) mmol/L Chloride 103 (98-107) mmol/L Carbon Dioxide 31 (21-32) mmol/L Anion Gap 11.9 (10-20) mmol/L BUN 18 (7-18) mg/dL Creatinine 1.4 H (0.70-1.30) mg/dL Est Cr Clr Drug Dosing TNP Estimated GFR (MDRD) > 60 Glucose 105 (74-106) mg/dL Calcium 8.7 (8.5-10.1) mg/dL Corrected Calcium 8.86 (8.5-10.1) mg/dL Magnesium 1.9 (1.8-2.4) mg/dL Total Bilirubin 0.4 (0.2-1.0) mg/dL AST 24 (15-37) U/L ALT 42 (16-63) U/L Alkaline Phosphatase 62 (46-116) U/L C-Reactive Protein 0.3 (<=0.9) mg/dL Total Protein 7.8 (6.4-8.2) g/dL Albumin 3.8 (3.4-5.0) g/dL Globulin 4.0 Albumin/Globulin Ratio 0.95 Meds: Medications Generic Name Dose Route Start Last Admin Trade Name Freq PRN Reason Stop Dose Admin Sodium Chloride 10 ml 01/04/20 06:49 Saline Flush FLUSH ASDIRECTED PRN Keep Vein Open Discontinued Medications Generic Name Dose Route Start Last Admin Trade Name Freq PRN Reason Stop Dose Admin Ketorolac Tromethamine 15 mg 01/04/20 06:49 01/04/20 06:59 Toradol IVPUSH 01/04/20 06:50 15 mg ONETIME ONE Administration Ondansetron HCl 4 mg 01/04/20 06:49 01/04/20 06:55 Zofran IVPUSH 01/04/20 06:50 4 mg ONETIME ONE Administration Departure - Departure Disposition: DC/Tfer to Medicaid [facility] Clinical Impression: Cholelithiases, Recurrent biliary colic - Discharge Information Prescriptions: Ibuprofen 800 mg PO Q8H #60 tablet Ondansetron [Zofran ODT] 4 mg PO Q4H PRN #30 tab.dis PRN Reason: Nausea Instructions: Cholelithiasis, Biliary Colic, Adult Referrals: Maximo Caraballo, DRIVER SERVICE TECHNICIAN [Primary Care Provider] - Forms: ED Department Discharge Additional Instructions: -Continue the Hydrocodone/APAP prescription as needed for pain -Zofran ODT 4mg po every 4 hours as needed for nausea #30(Rx) -Ibuprofen 800mg oral every 8 hours as needed for pain/inflammation #60(Rx) -Activity as you can tolerate -Eat a bland diet, avoid any fatty, greasy, or spicy foods that may aggravate your symptoms -Call the surgeon in [place] and let them know that were in the ER again. -Return as needed to the ER for any concerns <Vaishnavi Horn - Last Filed: 01/04/20 07:52> ED HPI GENERAL MEDICAL PROBLEM - General Source of Information: Reports: Patient ED ROS GENERAL - Review of Systems Review Of Systems: See Below Constitutional: Denies: Fever, Chills, Fatigue HEENT: Reports: No Symptoms Respiratory: Reports: No Symptoms Cardiovascular: Reports: No Symptoms Endocrine: Reports: No Symptoms GI/Abdominal: Reports: Abdominal Pain, Nausea. Denies: Vomiting : Reports: No Symptoms Musculoskeletal: Reports: No Symptoms Skin: Reports: No Symptoms Neurological: Reports: No Symptoms Psychiatric: Reports: No Symptoms Hematologic/Lymphatic: Reports: No Symptoms Immunologic: Reports: Seasonal Allergy ED EXAM, GENERAL - Physical Exam Exam: See Below Exam Limited By: No Limitations General Appearance: Alert, WD/WN, No Apparent Distress Ears: Hearing Grossly Normal Nose: Normal Inspection, Normal Mucosa Throat/Mouth: Normal Inspection, Normal Lips, Normal Voice Head: Atraumatic, Normocephalic Neck: Normal Inspection, Supple Respiratory/Chest: No Respiratory Distress, Lungs Clear, Normal Breath Sounds, Chest Non-Tender Cardiovascular: Normal Peripheral Pulses, Regular Rate, Rhythm, No Murmur GI/Abdominal: Normal Bowel Sounds, Soft, Guarding, Tender (RUQ) (Male) Exam: No Hernia Rectal (Males) Exam: Deferred Back Exam: CVA Tenderness (R) Extremities: Normal Inspection, Normal Range of Motion, Normal Capillary Refill Neurological: Alert, Oriented, CN II-XII Intact, Normal Cognition Psychiatric: Normal Affect, Normal Mood Skin Exam: Warm, Dry, Intact, Normal Color, No Rash Lymphatic: No Adenopathy Course - Vital Signs Text/Narrative:: The patient was had initially been seen by Donnie Srinivasan PA-C. Labs were pending, he was given Toradol and Zofran. This INFORMATION SERVICES ASSISTANT saw patient and labs were pending yet. 0745 Labs reviewed. Discussed with patient. Patient reports decreased pain from the Toradol. Will have him touch base with the surgeon that he saw and let them know he was here in the ER. Discussed labs with patient. He was given discharge instructions and left the ER in stable condition. Departure - Departure Time of Disposition: 07:46 Preliminary Cause of *Q: Cardiac Arrest Condition: Good - Discharge Information *PRESCRIPTION DRUG MONITORING PROGRAM REVIEWED*: Not Applicable *COPY OF PRESCRIPTION DRUG MONITORING REPORT IN PATIENT DORIAN: Not Applicable Sepsis Event Note - Focused Exam Date Exam was Performed: 01/04/20 Time Exam was Performed: 07:44
[2020-01-04 07:26] LABS: CHLORIDE,CL 103 mmol/L (98-107); SODIUM,NA 142 mmol/L (136-145)
[2020-01-04 07:27] LABS: ANION GAP 11.9 mmol/L (10-20)
[2020-01-04 07:52] VITALS: BP 153/85; PULSE 84
== END 2020-01-04 08:01 | disposition home or self-care (01) ==
LOC: VM.ED 06:41
DX: K80.70 Calculus of gallbladder and bile duct without cholecystitis without obstruction (principal); M10.9 Gout, unspecified; E66.9 Obesity, unspecified; Z68.35 Body mass index [BMI] 35.0-35.9, adult; Z88.8 Allergy status to other drugs, medicaments and biological substances; Z88.0 Allergy status to penicillin
CPT/HCPCS: 36415; 80053; 83735; 85025; 85610; 86140; 96374; 96375; 99284-25; J1885; J2405

== ENCOUNTER 2020-01-17 12:00 | Emergency (ER) | payer BC ==
[2020-01-17 12:17] VITALS: BP 130/78; PULSE 89
--- NOTE | 2020-01-17 12:34 | EDM.PDOC ---
ED HPI GENERAL MEDICAL PROBLEM - General Chief Complaint: Skin Complaint Stated Complaint: Incision site from cholecystectomy started draining about 20 minutes ago Time Seen by Provider: 01/17/20 12:10 Source of Information: Reports: Patient History Limitations: Reports: No Limitations - History of Present Illness INITIAL COMMENTS - FREE TEXT/NARRATIVE: Patient states Saturday he had a outpatient laparoscopic cholecystectomy with no complications and discharged later that day. States that the incision over his bellybutton started draining when seen his primary care provider Saturday who placed the Dermabond over the incision and has had no trouble since until about 30 minutes ago when he noticed it had a little bit yellowish clear DC draining from it. He has no other complaints at this time no other signs or symptoms states he has been doing well eating and drinking moving his bowels with no issues he denies any fever chills abdominal pain or cramping Duration: Minutes: Associated Symptoms: Reports: No Other Symptoms Incisional Pain Score (Numeric/FACES): 4 - Related Data Allergies Allergy/AdvReac Type Severity Reaction Status Date / Time indomethacin [From Indocin] Allergy Swelling Verified 01/17/20 12:18 Penicillins Allergy Hives Verified 01/17/20 12:18 Home Meds: Home Meds Black Elder Holcomb 1 tab PO BID 10/16/19 [History] Ibuprofen 800 mg PO Q8H #60 tablet 01/04/20 [Rx] Ondansetron [Zofran ODT] 4 mg PO Q4H PRN #30 tab.dis 01/04/20 [Rx] Hydrocodone/Acetaminophen [Hydrocodone-Acetamin 5-325 mg] 1 each PO Q6H PRN 12/03 [History] Past Medical History - Past Health History Medical/Surgical History: Denies Medical/Surgical History HEENT History: Reports: Otitis Media Cardiovascular History: Reports: None Respiratory History: Reports: None Gastrointestinal History: Reports: Hemorrhoids Genitourinary History: Reports: None Musculoskeletal History: Reports: Gout Neurological History: Reports: None Psychiatric History: Reports: None Endocrine/Metabolic History: Reports: Obesity/BMI 30+ Hematologic History: Reports: None Immunologic History: Reports: None Oncologic (Cancer) History: Reports: None Dermatologic History: Reports: Other (See Below) Other Dermatologic History: morphea - Infectious Disease History Infectious Disease History: Reports: None - Past Surgical History Head Surgeries/Procedures: Reports: None GI Surgical History: Reports: Cholecystectomy Musculoskeletal Surgical History: Reports: Other (See Below) Other Musculoskeletal Surgeries/Procedures:: vericose vein surgery Social & Family History - Family History Family Medical History: Noncontributory - Tobacco Use Smoking Status *Q: Unknown Ever Smoked - Caffeine Use Caffeine Use: Reports: None - Living Situation & Occupation Living situation: Reports: with Family Occupation: Employed ED ROS GENERAL - Review of Systems Review Of Systems: See Below Constitutional: Reports: No Symptoms HEENT: Reports: No Symptoms Respiratory: Reports: No Symptoms Cardiovascular: Reports: No Symptoms Endocrine: Reports: No Symptoms GI/Abdominal: Reports: No Symptoms. Denies: Abdominal Pain, Bloody Stool, Constipation, Diarrhea, Decreased Appetite, Distension, Flatus, Nausea, Vomiting : Reports: No Symptoms Musculoskeletal: Reports: No Symptoms Skin: Reports: Wound. Denies: Dryness, Bruising, Pruritis, Rash, Erythema, Burn (s), Lesions Neurological: Reports: No Symptoms Psychiatric: Reports: No Symptoms Hematologic/Lymphatic: Denies: Anemia, Easy Bleeding, Easy Bruising Immunologic: Reports: No Symptoms ED EXAM, SKIN/RASH Exam: See Below Exam Limited By: No Limitations General Appearance: Alert, WD/WN, No Apparent Distress Throat/Mouth: Normal Inspection, Normal Lips, Normal Teeth, Normal Gums, Normal Oropharynx, Normal Voice, No Airway Compromise Neck: Supple, Full Range of Motion Respiratory/Chest: No Respiratory Distress, Lungs Clear, Normal Breath Sounds, No Accessory Muscle Use, Chest Non-Tender Cardiovascular: Regular Rate, Rhythm, No Edema, No Gallop, No JVD GI/Abdominal: Normal Bowel Sounds, Soft, Non-Tender, No Organomegaly, No Distention, Other (There is noted multiple #4 trocar incision sites across abdomen that are well healing there is no erythema calor streaking or signs or symptoms of secondary infection around those areas there is noted healing bruising around the umbilicus status post cholecystectomy there is no noted discharge from the umbilical incision it looks to be well healing there is no appreciated or palpable abscess noted around the incisions there is no tenderness across the abdomen no guarding or rigidity he has normal bowel sounds negative HSM). No: Distended, Guarding, Rigid, Rebound, Tender, Abnormal Bowel Sounds Back Exam: Full Range of Motion Extremities: Normal Inspection, Normal Range of Motion Neurological: Alert, Oriented, CN II-XII Intact, Normal Cognition, Normal Gait Psychiatric: Normal Affect, Normal Mood Skin: Warm, Dry, Intact, Normal Color, No Rash, Ecchymosis (Ecchymosis as noted above under abdomen) Course - Vital Signs Last Recorded V/S: Last Vital Signs Temp 37.0 C 01/17/20 12:05 Pulse 89 01/17/20 12:05 Resp 18 01/17/20 12:05 BP 130/78 01/17/20 12:05 Pulse Ox 96 01/17/20 12:05 Departure - Departure Time of Disposition: 12:35 Disposition: Home, Self-Care 01 Condition: Good Clinical Impression: Healing of postoperative wound - Discharge Information *PRESCRIPTION DRUG MONITORING PROGRAM REVIEWED*: No *COPY OF PRESCRIPTION DRUG MONITORING REPORT IN PATIENT DORIAN: No Referrals: Maximo Caraballo NP [Primary Care Provider] - Forms: ED Department Discharge Additional Instructions: Your diagnosis is healing surgical wound Keep the area clean with warm hot soapy water you may place a dry gauze over the area make sure you change it at least twice a day Follow-up with your primary care provider in the next 48 hours Keep your appointment with your surgeon for follow-up as directed Return to the emergency room if anything changes or gets worse Sepsis Event Note - Evaluation Sepsis Screening Result: No Definite Risk - Focused Exam Vital Signs: Vital Signs Temp Pulse Resp BP Pulse Ox 01/17/20 12:05 37.0 C 89 18 130/78 96 Date Exam was Performed: 01/17/20 Time Exam was Performed: 22:46 - Problem List & Annotations (1) Healing of postoperative wound SNOMED Code(s): 451992448 Code(s): [id number] - Status: Acute
== END 2020-01-17 12:40 | disposition home or self-care (01) ==
LOC: VM.ED 12:00
DX: Z48.815 Encounter for surgical aftercare following surgery on the digestive system (principal); Z88.8 Allergy status to other drugs, medicaments and biological substances; Z88.0 Allergy status to penicillin; E66.9 Obesity, unspecified
CPT/HCPCS: 99283

== ENCOUNTER 2020-06-24 00:42 | Emergency (ER) | payer BC, OTHER ==
--- NOTE | 2020-06-24 00:57 | EDM.PDOC ---
ED HPI GENERAL MEDICAL PROBLEM - General Chief Complaint: Lower Extremity Injury/Pain Stated Complaint: Left Ankle Pain Time Seen by Provider: 06/24/20 00:57 Source of Information: Reports: Patient, RN, RN Notes Reviewed History Limitations: Reports: No Limitations - History of Present Illness INITIAL COMMENTS - FREE TEXT/NARRATIVE: Patient presents to ER with c/o left ankle pain due to gout flare up. Patient states he has a history of gout and takes Black Elderberry and Naproxen for it. Patient recently had a flare up in May, was seen in the ER in [place], and labs were done. Uric acid was found to be high at that time. Patient concerned about taking medications and their side effects. Onset: Gradual - Related Data Allergies Allergy/AdvReac Type Severity Reaction Status Date / Time indomethacin [From Indocin] Allergy Swelling Verified 01/17/20 12:18 Penicillins Allergy Hives Verified 01/17/20 12:18 Home Meds: Home Meds Black Elder Holcomb 1 tab PO BID 10/16/19 [History] Ibuprofen 800 mg PO Q8H #60 tablet 01/04/20 [Rx] Ondansetron [Zofran ODT] 4 mg PO Q4H PRN #30 tab.dis 01/04/20 [Rx] Hydrocodone/Acetaminophen [Hydrocodone-Acetamin 5-325 mg] 1 each PO Q6H PRN 01/17/20 [History] Past Medical History - Past Health History Medical/Surgical History: Denies Medical/Surgical History HEENT History: Reports: Otitis Media Cardiovascular History: Reports: None Respiratory History: Reports: None Gastrointestinal History: Reports: Hemorrhoids Genitourinary History: Reports: None Musculoskeletal History: Reports: Gout Neurological History: Reports: None Psychiatric History: Reports: None Endocrine/Metabolic History: Reports: Obesity/BMI 30+ Hematologic History: Reports: None Immunologic History: Reports: None Oncologic (Cancer) History: Reports: None Dermatologic History: Reports: Other (See Below) Other Dermatologic History: morphea - Infectious Disease History Infectious Disease History: Reports: None - Past Surgical History Head Surgeries/Procedures: Reports: None GI Surgical History: Reports: Cholecystectomy Musculoskeletal Surgical History: Reports: Other (See Below) Other Musculoskeletal Surgeries/Procedures:: vericose vein surgery Social & Family History - Family History Family Medical History: Noncontributory - Caffeine Use Caffeine Use: Reports: Tea - Living Situation & Occupation Living situation: Reports: with Family Occupation: Employed Review of Systems - Review of Systems Review Of Systems: Comprehensive ROS is negative, except as noted in HPI. ED EXAM, GENERAL - Physical Exam Exam: See Below Exam Limited By: No Limitations General Appearance: Alert, WD/WN, No Apparent Distress Eye Exam: Bilateral Eye: EOMI, Normal Inspection Ears: Normal External Exam, Hearing Grossly Normal Nose: Normal Inspection Throat/Mouth: Normal Inspection, Normal Voice, No Airway Compromise Head: Atraumatic, Normocephalic Neck: Normal Inspection, Supple, Non-Tender, Full Range of Motion Respiratory/Chest: No Respiratory Distress, Lungs Clear, Normal Breath Sounds, No Accessory Muscle Use, Chest Non-Tender Cardiovascular: Normal Peripheral Pulses, Regular Rate, Rhythm, No Edema, No Gallop, No JVD, No Murmur, No Rub Peripheral Pulses: 2+: Radial (L), Radial (R) GI/Abdominal: Normal Bowel Sounds, Soft, Non-Tender (Male) Exam: Deferred Rectal (Males) Exam: Deferred Back Exam: Normal Inspection, Full Range of Motion, NT Extremities: Joint Swelling (left ankle), Limited Range of Motion (left ankle), Redness (left ankle) Neurological: Alert, Oriented, CN II-XII Intact, Normal Cognition, Normal Gait, Normal Reflexes, No Motor/Sensory Deficits Psychiatric: Normal Affect, Normal Mood Skin Exam: Warm, Dry, Intact, No Rash, Erythema (left ankle) Lymphatic: No Adenopathy Course - Orders/Labs/Meds Meds: Medications Discontinued Medications Generic Name Dose Route Start Last Admin Trade Name Marquisq PRN Reason Stop Dose Admin Colchicine 1.2 mg 06/24/20 01:06 06/24/20 01:34 Colcrys PO 06/24/20 01:07 1.2 mg ONETIME ONE Administration Colchicine 0.6 mg 06/24/20 01:08 06/24/20 01:34 Colcrys PO 06/24/20 01:09 0.6 mg ONETIME ONE Administration Departure - Departure Time of Disposition: 01:11 Disposition: Home, Self-Care 01 Condition: Fair Clinical Impression: Gout attack Qualifiers: Gout site: ankle Gout etiology: unspecified cause Laterality: left Qualified Code(s): M10.9 - Gout, unspecified - Discharge Information *PRESCRIPTION DRUG MONITORING PROGRAM REVIEWED*: No *COPY OF PRESCRIPTION DRUG MONITORING REPORT IN PATIENT DORIAN: No Instructions: Low-Purine Eating Plan Referrals: Maximo Caraballo NP [Primary Care Provider] - Forms: ED Department Discharge Additional Instructions: Take 0.6mg Colchicine one hour after first dose Continue taking Black Elder Holcomb Continue taking Naproxen Follow up with your primary care facility if no improvement
[2020-06-24] MEDS ORDERED: Colchicine 0.6 MG Tab PO ONE ×2 (01:06→01:08)
[2020-06-24 09:13] VITALS: BP 122/87; PULSE 105
== END 2020-06-24 01:41 | disposition home or self-care (01) ==
LOC: VM.ED 00:42
DX: M10.9 Gout, unspecified (principal); E66.9 Obesity, unspecified; Z68.36 Body mass index [BMI] 36.0-36.9, adult; Z88.0 Allergy status to penicillin; Z88.8 Allergy status to other drugs, medicaments and biological substances; Z90.49 Acquired absence of other specified parts of digestive tract
CPT/HCPCS: 99283; A9270; 99284

== ENCOUNTER 2021-02-14 01:40 | Emergency (ER) | payer OTHER ==
[2021-02-14] MEDS ORDERED: Take Home: traMADol 50 MG, 4 Tab Pack PO ONE (01:51)
[2021-02-14] MEDS ORDERED: Take Home: predniSONE 20 MG, 2 Tab Pack PO ONE (01:51)
[2021-02-14 04:03] VITALS: BP 124/73; PULSE 103
--- NOTE | 2021-02-16 00:46 | EDM.PDOC ---
ED HPI GENERAL MEDICAL PROBLEM - General Chief Complaint: Lower Extremity Injury/Pain Stated Complaint: Gout pain to right ankle Time Seen by Provider: 02/14/21 01:55 Source of Information: Reports: Patient History Limitations: Reports: No Limitations - History of Present Illness INITIAL COMMENTS - FREE TEXT/NARRATIVE: Pt. presents to ER with complaints of severe pain in R great toe, as well as R anteriolateral ankle. Pt. denies any trauma to the area. Pt. states that he has a history of gout, and states that the discomfort is similar to previous gout attacks. Denies any fever or chills. Pt. is wearing a boot in the L lower extremity secondary to partial achilles tendon tear. Pt. states that his last gout attack was about 2 years ago. He states that he did take aleve for the pain prior to presenting to ER with minimal improvment. Onset Date: 02/13/21 Location: Reports: Lower Extremity, Right Quality: Reports: Sharp, Throbbing Severity: Moderate Treatments PANTS PRESSER: Reports: Other (see below) Other Treatments PANTS PRESSER: Aleve, Pancho cherry supplement Right ankle Pain Score (Numeric/FACES): 9 - Related Data Allergies Allergy/AdvReac Type Severity Reaction Status Date / Time indomethacin [From Indocin] Allergy Swelling Verified 02/14/21 04:03 Penicillins Allergy Hives Verified 02/14/21 04:03 Home Meds: Home Meds Pancho Holcomb 1 tab PO BID 10/16/19 [History] Ibuprofen 800 mg PO Q8H #60 tablet 01/04/20 [Rx] Past Medical History - Past Health History Medical/Surgical History: Denies Medical/Surgical History HEENT History: Reports: Otitis Media Cardiovascular History: Reports: None Respiratory History: Reports: None Gastrointestinal History: Reports: Hemorrhoids Genitourinary History: Reports: None Musculoskeletal History: Reports: Gout Neurological History: Reports: None Psychiatric History: Reports: None Endocrine/Metabolic History: Reports: Obesity/BMI 30+ Hematologic History: Reports: None Immunologic History: Reports: None Oncologic (Cancer) History: Reports: None Dermatologic History: Reports: Other (See Below) Other Dermatologic History: morphea - Infectious Disease History Infectious Disease History: Reports: None - Past Surgical History Head Surgeries/Procedures: Reports: None GI Surgical History: Reports: Cholecystectomy Musculoskeletal Surgical History: Reports: Other (See Below) Other Musculoskeletal Surgeries/Procedures:: vericose vein surgery Social & Family History - Family History Family Medical History: No Pertinent Family History - Tobacco Use Tobacco Use Status *Q: Unknown Ever Used Tobacco - Caffeine Use Caffeine Use: Reports: Tea - Living Situation & Occupation Living situation: Reports: with Family Occupation: Employed ED ROS GENERAL - Review of Systems Review Of Systems: See Below Constitutional: Reports: No Symptoms Musculoskeletal: Reports: Foot Pain, Joint Pain Skin: Reports: No Symptoms, Erythema ED EXAM, GENERAL - Physical Exam Exam: See Below Exam Limited By: No Limitations General Appearance: Alert, WD/WN, No Apparent Distress Extremities: Joint Swelling, Redness Neurological: Alert, Oriented, CN II-XII Intact, Normal Cognition, Normal Gait, Normal Reflexes, No Motor/Sensory Deficits Psychiatric: Normal Affect, Normal Mood Skin Exam: Warm, Dry, Intact, Normal Color, No Rash Course - Vital Signs Last Recorded V/S: Last Vital Signs Temp 38.1 C 02/14/21 01:40 Pulse 103 H 02/14/21 01:40 Resp 16 02/14/21 01:40 BP 124/73 02/14/21 01:40 Pulse Ox 96 02/14/21 01:40 - Orders/Labs/Meds Meds: Medications Discontinued Medications Generic Name Dose Route Start Last Admin Trade Name Marquisq PRN Reason Stop Dose Admin Prednisone 1 packet 02/14/21 01:51 02/14/21 01:58 Take Home: Prednisone 20 Mg, 2 Tab Pack PO 02/14/21 01:52 1 packet ONETIME ONE Administration Tramadol HCl 1 packet 02/14/21 01:51 02/14/21 01:58 Take Home: Tramadol 50 Mg, 4 Tab Pack PO 02/14/21 01:52 1 packet ONETIME ONE Administration Departure - Departure Time of Disposition: 02:30 Disposition: Home, Self-Care 01 Clinical Impression: Gout - Discharge Information Instructions: Low-Purine Eating Plan, Tramadol tablets, Prednisone tablets Forms: ED Department Discharge Additional Instructions: Drink plenty of water. Minimize physical activity. Prednisone 20mg 2 tabs daily for 7 days Naproxen (aleve) 220mg 2 tabs twice daily. Take this whether you need it our not, as it will help with inflammation. Tramadol 50mg 1 every 6 hours for severe pain Sepsis Event Note (ED) - Evaluation Sepsis Screening Result: No Definite Risk - Problem List Review Problem List Initiated/Reviewed/Updated: Yes - Assessment/Plan Plan: Drink plenty of water. Minimize physical activity. Prednisone 20mg 2 tabs daily for 7 days Naproxen (aleve) 220mg 2 tabs twice daily. Take this whether you need it our not, as it will help with inflammation. Tramadol 50mg 1 every 6 hours for severe pain
== END 2021-02-14 02:05 | disposition home or self-care (01) ==
LOC: VM.ED 01:40
DX: M10.9 Gout, unspecified (principal); E66.9 Obesity, unspecified; Z88.1 Allergy status to other antibiotic agents; Z88.0 Allergy status to penicillin; Z68.35 Body mass index [BMI] 35.0-35.9, adult
CPT/HCPCS: 99283; A9270-GY; J7512

== ENCOUNTER 2021-03-26 19:10 | Emergency (ER) | payer OTHER ==
[2021-03-26] MEDS ORDERED: predniSONE 20 MG Tab PO ONE (19:31)
[2021-03-26] MEDS ORDERED: Ketorolac 30 MG/ML SDV IM ONE (19:31)
[2021-03-26] MEDS ORDERED: Take Home: traMADol 50 MG, 4 Tab Pack PO ONE (19:32)
--- NOTE | 2021-03-26 19:34 | EDM.PDOC ---
ED HPI GENERAL MEDICAL PROBLEM - General Time Seen by Provider: 03/26/21 19:24 Source of Information: Reports: Patient - History of Present Illness INITIAL COMMENTS - FREE TEXT/NARRATIVE: Mane is a 25 y/o male who comes to the ER with complaints of pain in his right ankle. Reports that pain feels much like previous gout attack. He has been taking Black Leonard BID but he admits missing a few doses and that may have triggered the pain. He also did eat ivory a few days ago and that added with missing the doses of the Black Leonard have probably triggered the attack. - Related Data Allergies Allergy/AdvReac Type Severity Reaction Status Date / Time indomethacin [From Indocin] Allergy Swelling Verified 02/14/21 04:03 Penicillins Allergy Hives Verified 02/14/21 04:03 Home Meds: Home Meds Pancho Abel Holcomb 1 tab PO BID 10/16/19 [History] Ibuprofen 800 mg PO Q8H #60 tablet 01/04/20 [Rx] predniSONE [Prednisone] 40 mg PO DAILY 6 Days #12 tablet 03/26/21 [Rx] traMADol [Ultram] 50 - 100 mg PO Q6H PRN #30 tab 03/26/21 [Rx] Past Medical History - Past Health History Medical/Surgical History: Denies Medical/Surgical History HEENT History: Reports: Otitis Media Cardiovascular History: Reports: None Respiratory History: Reports: None Gastrointestinal History: Reports: Hemorrhoids Genitourinary History: Reports: None Musculoskeletal History: Reports: Gout Neurological History: Reports: None Psychiatric History: Reports: None Endocrine/Metabolic History: Reports: Obesity/BMI 30+ Hematologic History: Reports: None Immunologic History: Reports: None Oncologic (Cancer) History: Reports: None Dermatologic History: Reports: Other (See Below) Other Dermatologic History: morphea - Infectious Disease History Infectious Disease History: Reports: None - Past Surgical History Head Surgeries/Procedures: Reports: None GI Surgical History: Reports: Cholecystectomy Musculoskeletal Surgical History: Reports: Other (See Below) Other Musculoskeletal Surgeries/Procedures:: vericose vein surgery Social & Family History - Family History Family Medical History: No Pertinent Family History - Caffeine Use Caffeine Use: Reports: Tea - Living Situation & Occupation Living situation: Reports: with Family Occupation: Employed Review of Systems - Review of Systems Review Of Systems: See Below Constitutional: Reports: No Symptoms Eyes: Reports: No Symptoms Ears: Reports: No Symptoms Nose: Reports: No Symptoms Mouth/Throat: Reports: No Symptoms Respiratory: Reports: No Symptoms Cardiovascular: Reports: No Symptoms GI/Abdominal: Reports: No Symptoms Genitourinary: Reports: No Symptoms Musculoskeletal: Reports: Joint Pain (right ankle) ED EXAM, GENERAL - Physical Exam Exam: See Below General Appearance: Alert, WD/WN, No Apparent Distress, Obese (Adult male) Ears: Hearing Grossly Normal Nose: Normal Inspection Throat/Mouth: Normal Voice Head: Atraumatic, Normocephalic Respiratory/Chest: No Respiratory Distress GI/Abdominal: Soft (Male) Exam: Deferred Rectal (Males) Exam: Deferred Extremities: Normal Inspection, Normal Capillary Refill, Other (right ankle tender with palpation, no erythema appreciated) Neurological: Alert, Oriented, CN II-XII Intact, Normal Cognition Psychiatric: Normal Affect, Normal Mood Skin Exam: Warm, Dry, Intact, Normal Color Course - Vital Signs Text/Narrative:: 1925 The patient was seen by the [facility] REPAIRER. He was given Toradol 30mg IM and Prednisone 60mg po. VSS. No labs indicated today. Will have his PCP follow Uric Acid. Patient reported relief of pain. He was given written discharge instructions and left the ER in stable condition. - Orders/Labs/Meds Meds: Medications Discontinued Medications Generic Name Dose Route Start Last Admin Trade Name Tank PRN Reason Stop Dose Admin Ketorolac Tromethamine 30 mg 03/26/21 19:31 03/26/21 20:02 Ketorolac 30 Mg/Ml Sdv IM 03/26/21 19:32 30 mg ONETIME ONE Administration Prednisone 60 mg 03/26/21 19:31 03/26/21 20:02 Prednisone 20 Mg Tab PO 03/26/21 19:32 60 mg ONETIME ONE Administration Tramadol HCl 2 packet 03/26/21 19:32 03/26/21 20:02 Take Home: Tramadol 50 Mg, 4 Tab Pack PO 03/26/21 19:33 2 packet ONETIME ONE Administration Departure - Departure Time of Disposition: 20:08 Disposition: Home, Self-Care 01 Condition: Good Clinical Impression: Gout Qualifiers: Gout site: ankle Gout etiology: unspecified cause Chronicity: unspecified Late rality: right Qualified Code(s): M10.9 - Gout, unspecified - Discharge Information *PRESCRIPTION DRUG MONITORING PROGRAM REVIEWED*: No *COPY OF PRESCRIPTION DRUG MONITORING REPORT IN PATIENT DORIAN: No Prescriptions: predniSONE [Prednisone] 40 mg PO DAILY 6 Days #12 tablet traMADol [Ultram] 50 - 100 mg PO Q6H PRN #30 tab PRN Reason: Pain Instructions: Low-Purine Eating Plan Referrals: Maximo Caraballo [employer] [facility] [Primary Care Provider] - Additional Instructions: -Prednisone 20mg 2 tablets oral daily x 6 days #12(Rx) -Aleve 2 tablets oral 2x day x 1 week -Tramadol 50mg 1-2 tablets oral every 6 hours as needed for pain #30(Rx) -Avoid foods that trigger your gout symptoms -Drink plenty of fluids -Make an appt to see your PCP for further care and labs -Return as needed to the ER for any concerns - Assessment/Plan Assessment:: 1)Gout, Right Ankle Plan: As above
[2021-03-26 21:32] VITALS: BP 129/76; PULSE 92
== END 2021-03-26 20:14 | disposition home or self-care (01) ==
LOC: VM.ED 19:10
DX: M10.9 Gout, unspecified (principal); E66.9 Obesity, unspecified; Z68.35 Body mass index [BMI] 35.0-35.9, adult; Z88.0 Allergy status to penicillin; Z88.1 Allergy status to other antibiotic agents
CPT/HCPCS: 96372; 99283; A9270-GY; J1885; J7512

== ENCOUNTER 2021-08-25 07:10 | Emergency (ER) | payer SELFPAY ==
[2021-08-25 07:24] VITALS: BP 150/90; PULSE 88
--- NOTE | 2021-09-12 11:36 | EDM.PDOC ---
ED HPI GENERAL MEDICAL PROBLEM - General Chief Complaint: Abdominal Pain Stated Complaint: LOWER ABDOMINABLE PAIN Time Seen by Provider: 08/25/21 08:00 Source of Information: Reports: Patient History Limitations: Reports: No Limitations - History of Present Illness INITIAL COMMENTS - FREE TEXT/NARRATIVE: Pt. presents to ER with complaints of L inguinal pain. Pt. states that he injured himself doing mixed martial arts several days ago. Denies any back pain. Pt. states that the discomfort to the area is worse with movement/palpation. Pt. denies taking any over the counter pain medication for the past 2 days. He has not been using heat or ice. Denies any high energy trauma. No problems with urination. No abdominal discomfort. Pain isolated to inguinal area. Onset: Today Onset Date: 08/25/21 Location: Reports: Lower Extremity, Left Left Lower Abdomen Pain Score (Numeric/FACES): 5 - Related Data Allergies Allergy/AdvReac Type Severity Reaction Status Date / Time indomethacin [From Indocin] Allergy Swelling Verified 08/25/21 07:31 Penicillins Allergy Hives Verified 08/25/21 07:31 Home Meds: Home Meds Pancho Holcomb 2,800 mg PO BID 10/16/19 [History] Ibuprofen 800 mg PO Q8H PRN 08/25/21 [History] Past Medical History - Past Health History Medical/Surgical History: Denies Medical/Surgical History HEENT History: Reports: Otitis Media Cardiovascular History: Reports: None Respiratory History: Reports: None Gastrointestinal History: Reports: Hemorrhoids Genitourinary History: Reports: None Musculoskeletal History: Reports: Gout Neurological History: Reports: None Psychiatric History: Reports: None Endocrine/Metabolic History: Reports: Obesity/BMI 30+ Hematologic History: Reports: None Immunologic History: Reports: None Oncologic (Cancer) History: Reports: None Dermatologic History: Reports: Other (See Below) Other Dermatologic History: morphea - Infectious Disease History Infectious Disease History: Reports: None - Past Surgical History Head Surgeries/Procedures: Reports: None GI Surgical History: Reports: Cholecystectomy Musculoskeletal Surgical History: Reports: Other (See Below) Other Musculoskeletal Surgeries/Procedures:: vericose vein surgery Social & Family History - Family History Family Medical History: No Pertinent Family History - Tobacco Use Tobacco Use Status *Q: Never Tobacco User - Caffeine Use Caffeine Use: Reports: Tea - Recreational Drug Use Recreational Drug Use: No - Living Situation & Occupation Living situation: Reports: with Family Occupation: Employed ED ROS GENERAL - Review of Systems Review Of Systems: Comprehensive ROS is negative, except as noted in HPI. ED EXAM, GENERAL - Physical Exam Exam: See Below Exam Limited By: No Limitations General Appearance: Alert, WD/WN, No Apparent Distress GI/Abdominal: Normal Bowel Sounds, Soft, Non-Tender, No Organomegaly, No Distention, No Mass (Male) Exam: No Hernia Extremities: Normal Inspection, Normal Range of Motion, Non-Tender, No Pedal Edema, Normal Capillary Refill, Other (point tenderness to L inguinal area. No edema or erythema noted to area.) Course - Vital Signs Last Recorded V/S: Last Vital Signs Temp 36.7 C 08/25/21 07:23 Pulse 88 08/25/21 07:23 Resp 16 08/25/21 07:23 BP 150/90 H 08/25/21 07:23 Pulse Ox 97 08/25/21 07:23 Departure - Departure Time of Disposition: 08:45 Disposition: Home, Self-Care 01 Clinical Impression: Inguinal strain - Discharge Information Instructions: Adductor Muscle Strain, Ibuprofen Oral Tablets and Capsules Referrals: Maximo Caraballo NP [Primary Care Provider] - Forms: ED Department Discharge Additional Instructions: Ibuprofen 200mg 1 3 tabs every 6 hours as needed for pain. Ice area for 10-15 min every hour No MMA until you are no longer having discomfort. - Problem List Review Problem List Initiated/Reviewed/Updated: Yes - Assessment/Plan Plan: Ibuprofen 200mg 1 3 tabs every 6 hours as needed for pain. Ice area for 10-15 min every hour No MMA until you are no longer having discomfort.
== END 2021-08-25 08:25 | disposition home or self-care (01) ==
LOC: VM.ED 07:10
DX: S39.011A Strain of muscle, fascia and tendon of abdomen, initial encounter (principal); E66.9 Obesity, unspecified; Z68.30 Body mass index [BMI] 30.0-30.9, adult; Z88.0 Allergy status to penicillin; Z88.1 Allergy status to other antibiotic agents; X50.1XXA Overexertion from prolonged static or awkward postures, initial encounter
CPT/HCPCS: 99283

== ENCOUNTER 2021-10-15 21:55 | Emergency (ER) | payer OTHER ==
[2021-10-15 22:18] VITALS: BP 156/93; PULSE 94
[2021-10-15] MEDS ORDERED: Albuterol/Ipratropium 3.0-0.5 MG/3 ML Neb Soln NEB ONE (22:44)
[2021-10-15 22:48] LABS: CHLORIDE,CL 101 mmol/L (98-107); SODIUM,NA 138 mmol/L (136-145)
[2021-10-15] MEDS ORDERED: Take Home: Albuterol 18 GM Inhaler, 1 Inhaler Pack INH PRN (23:03)
[2021-10-15] MEDS ORDERED: predniSONE 20 MG Tab PO ONE (23:03)
== END 2021-10-15 23:24 | disposition home or self-care (01) ==
LOC: VM.ED 21:55
DX: J40 Bronchitis, not specified as acute or chronic (principal); E66.9 Obesity, unspecified; Z68.35 Body mass index [BMI] 35.0-35.9, adult; Z88.6 Allergy status to analgesic agent; Z88.0 Allergy status to penicillin; Z20.822 Contact with and (suspected) exposure to COVID-19
CPT/HCPCS: 36415; 80053; 83605; 84145; 84484; 85025; 86140; 93005; 93010; 94640; 99284; 99285-25; A9270-GY; J7620-GY; U0002

== ENCOUNTER 2022-01-24 05:24 | Emergency (ER) | payer OTHER ==
[2022-01-24 05:58] VITALS: BP 123/75; PULSE 93
== END 2022-01-24 06:42 | disposition home or self-care (01) ==
LOC: VM.ED 05:24
DX: R31.9 Hematuria, unspecified (principal); E66.9 Obesity, unspecified; Z68.36 Body mass index [BMI] 36.0-36.9, adult; Z88.0 Allergy status to penicillin; Z88.1 Allergy status to other antibiotic agents
CPT/HCPCS: 81001; 99283

== ENCOUNTER 2022-07-21 16:20 | Emergency (ER) | payer OTHER ==
[2022-07-21 16:30] VITALS: BP 136/82; PULSE 89
[2022-07-21] MEDS ORDERED: Take Home: Cyclobenzaprine 10 MG Tab, 4 Tab Pack PO ONE (16:38)
== END 2022-07-21 16:49 | disposition home or self-care (01) ==
LOC: VM.ED 16:20
DX: S13.4XXA Sprain of ligaments of cervical spine, initial encounter (principal); J45.909 Unspecified asthma, uncomplicated; M10.9 Gout, unspecified; E66.9 Obesity, unspecified; Z88.6 Allergy status to analgesic agent; Z88.0 Allergy status to penicillin; Z79.899 Other long term (current) drug therapy
CPT/HCPCS: 99283; A9270

== ENCOUNTER 2022-09-13 21:12 | Emergency (ER) | payer SELFPAY ==
[2022-09-13] MEDS ORDERED: Take Home: predniSONE 20 MG, 2 Tab Pack PO ONE (21:18)
[2022-09-13] MEDS ORDERED: Take Home: Ketorolac 10 MG Tab, 4 Tab Pack PO ONE (21:18)
[2022-09-13] MEDS ORDERED: Take Home: traMADol 50 MG, 4 Tab Pack PO ONE (21:18)
[2022-09-13 21:19] VITALS: BP 154/92; PULSE 93
== END 2022-09-13 21:30 | disposition home or self-care (01) ==
LOC: VM.ED 21:12
DX: M10.9 Gout, unspecified (principal); J45.909 Unspecified asthma, uncomplicated; E66.9 Obesity, unspecified; Z68.36 Body mass index [BMI] 36.0-36.9, adult; Z88.6 Allergy status to analgesic agent; Z88.0 Allergy status to penicillin
CPT/HCPCS: 99282; A9270; J7512

== ENCOUNTER 2022-11-15 09:41 | Emergency (ER) | payer SELFPAY ==
[2022-11-15] MEDS ORDERED: Ondansetron 4 MG/2 ML SDV IVPUSH ONE (10:16)
[2022-11-15 10:36] LABS: CHLORIDE,CL 101 mmol/L (98-107); SODIUM,NA 141 mmol/L (136-145)
[2022-11-15 10:38] LABS: ANION GAP 14.6 mmol/L (5-15); ESTIMATED GFR 59 mL/min (>=60)
[2022-11-15] MEDS ORDERED: Sodium Chloride 0.9% 1,000 ML IV ONE (10:46)
[2022-11-15 12:16] VITALS: BP 126/78; PULSE 89
== END 2022-11-15 12:16 | disposition home or self-care (01) ==
LOC: VM.ED 09:41
DX: K52.9 Noninfective gastroenteritis and colitis, unspecified (principal); J45.909 Unspecified asthma, uncomplicated; E66.9 Obesity, unspecified; Z88.6 Allergy status to analgesic agent; Z88.0 Allergy status to penicillin; Z79.899 Other long term (current) drug therapy
CPT/HCPCS: 80053; 85025; 96361; 96374; 99284; J2405; J7030

== ENCOUNTER 2023-04-22 21:47 | Emergency (ER) | payer SELFPAY ==
[2023-04-22 22:43] LABS: BASOPHILS PERCENT AUTO 0.5 % (0.2-1.2); EOSINOPHILS ABSOLUTE AUTO 0.2 x10^3/uL (0.0-0.5); EOSINOPHILS PERCENT AUTO 2.5 % (0.0-4.0); HEMATOCRIT 42.2 % (40.0-52.0); HEMOGLOBIN 15.3 g/dL (14.0-18.0); IMMATURE GRAN ABSOLUTE AUTO 0.01 x10^3/uL (0.00-0.07); LYMPHOCYTES ABSOLUTE AUTO 2.9 x10^3/uL (1.0-4.8); LYMPHOCYTES PERCENT AUTO 32.7 % (25.0-50.0); MEAN CORPUSCULAR HEMOGLOBIN 31.2 pg (26.0-32.0); MEAN CORPUSCULAR HGB CONC 36.3 g/dL (32.0-36.0); MEAN CORPUSCULAR VOLUME 85.9 fL (78.0-93.0); MONOCYTES ABSOLUTE AUTO 0.6 x10^3/uL (0.0-0.8); MONOCYTES PERCENT AUTO 6.6 % (2.0-11.0); NEUTROPHILS ABSOLUTE AUTO 5.1 x10^3/uL (1.8-7.7); NEUTROPHILS PERCENT AUTO 57.6 % (50.0-80.0); PLATELET COUNT,PLT 294 x10^3/uL (130-400); RED BLOOD CELL COUNT 4.91 x10^6/uL (4.5-6.0); WHITE BLOOD CELL COUNT,WBC 8.8 x10^3/uL (4.0-10.0)
[2023-04-22] MEDS ORDERED: Acetaminophen/HYDROcodone 325-10 MG Tab PO ONE (22:57)
[2023-04-22 23:07] LABS: A/G RATIO 0.95; ALANINE AMINOTRANSFERASE,ALT 42 U/L (16-63); ALBUMIN 3.8 g/dL (3.4-5.0); ALKALINE PHOSPHATASE 67 U/L (46-116); ASPARTATE AMNIOTRANSFERASE,AST 24 U/L (15-37); BILIRUBIN TOTAL 0.3 mg/dL (0.2-1.0); BLOOD UREA NITROGEN,BUN 21 mg/dL (7-18); CALCIUM 8.9 mg/dL (8.5-10.1); CARBON DIOXIDE,CO2 30 mmol/L (21-32); CHLORIDE,CL 103 mmol/L (98-107); CREATININE 1.3 mg/dL (0.70-1.30); GLUCOSE RANDOM 151 mg/dL (70-99); POTASSIUM,K 3.7 mmol/L (3.5-5.1); PROTEIN TOTAL,TP 7.8 g/dL (6.4-8.2); SODIUM,NA 142 mmol/L (136-145); URIC ACID 10.5 mg/dL (3.5-7.2)
[2023-04-22 23:10] LABS: ANION GAP 12.7 mmol/L (5-15); ESTIMATED GFR 76 mL/min (>=60)
[2023-04-22 23:17] LABS: SEDIMENTATION RATE AUTO 17 mm/hr (0-15)
[2023-04-22] MEDS ORDERED: methylPREDNISolone Sodium Succinate 125 MG/2 ML SDV IM ONE (23:32)
[2023-04-22] MEDS ORDERED: Take Home: Acetaminophen/HYDROcodone 325-10 MG, 5 Tab Pack PO ONE (23:33)
[2023-04-23 00:45] VITALS: BP 143/88; PULSE 89
== END 2023-04-22 23:50 | disposition home or self-care (01) ==
LOC: VM.ED 21:47
DX: M10.9 Gout, unspecified (principal); J45.909 Unspecified asthma, uncomplicated; E66.9 Obesity, unspecified; Z88.0 Allergy status to penicillin; Z88.1 Allergy status to other antibiotic agents; Z79.51 Long term (current) use of inhaled steroids; Z68.38 Body mass index [BMI] 38.0-38.9, adult
CPT/HCPCS: 36415; 80053; 84550; 85025; 85652; 86140; 96372; 99283; 99284; A9270-GY; J2930

== ENCOUNTER 2023-10-09 19:34 | Emergency (ER) | payer SELFPAY ==
[2023-10-09 20:36] VITALS: BP 138/74; PULSE 100
[2023-10-09] MEDS ORDERED: Colchicine 0.6 MG Tab PO ONE ×2 (20:39→21:36)
[2023-10-09 20:53] LABS: BASOPHILS ABSOLUTE AUTO 0.1 x10^3/uL (0.0-0.2); BASOPHILS PERCENT AUTO 0.4 % (0.2-1.2); EOSINOPHILS ABSOLUTE AUTO 0.1 x10^3/uL (0.0-0.5); HEMATOCRIT 42.7 % (40.0-52.0); HEMOGLOBIN 15.1 g/dL (14.0-18.0); IMMATURE GRAN ABSOLUTE AUTO 0.01 x10^3/uL (0.00-0.07); LYMPHOCYTES ABSOLUTE AUTO 1.7 x10^3/uL (1.0-4.8); LYMPHOCYTES PERCENT AUTO 13.5 % (25.0-50.0); MEAN CORPUSCULAR HEMOGLOBIN 30.3 pg (26.0-32.0); MEAN CORPUSCULAR HGB CONC 35.4 g/dL (32.0-36.0); MEAN CORPUSCULAR VOLUME 85.6 fL (78.0-93.0); MONOCYTES ABSOLUTE AUTO 0.9 x10^3/uL (0.0-0.8); MONOCYTES PERCENT AUTO 7.3 % (2.0-11.0); NEUTROPHILS ABSOLUTE AUTO 9.7 x10^3/uL (1.8-7.7); NEUTROPHILS PERCENT AUTO 77.7 % (50.0-80.0); PLATELET COUNT,PLT 269 x10^3/uL (130-400); RED BLOOD CELL COUNT 4.99 x10^6/uL (4.5-6.0); WHITE BLOOD CELL COUNT,WBC 12.5 x10^3/uL (4.0-10.0)
[2023-10-09 21:17] LABS: A/G RATIO 0.95; ALBUMIN 3.8 g/dL (3.4-5.0); BILIRUBIN TOTAL 0.3 mg/dL (0.2-1.0); CREATININE 1.6 mg/dL (0.70-1.30); EST CRCL DRUG DOSING (CG) 82.88 mL/min; POTASSIUM,K 3.8 mmol/L (3.5-5.1); PROTEIN TOTAL,TP 7.8 g/dL (6.4-8.2); URIC ACID 9.8 mg/dL (3.5-7.2)
[2023-10-09 21:24] LABS: ANION GAP 13.8 mmol/L (5-15)
== END 2023-10-09 22:00 | disposition home or self-care (01) ==
LOC: VM.ED 19:34
DX: M25.572 Pain in left ankle and joints of left foot (principal); M10.9 Gout, unspecified; E66.9 Obesity, unspecified; Z88.0 Allergy status to penicillin; Z88.8 Allergy status to other drugs, medicaments and biological substances; Z90.49 Acquired absence of other specified parts of digestive tract; Z68.36 Body mass index [BMI] 36.0-36.9, adult
CPT/HCPCS: 36415; 73610; 80053; 84550; 85025; 99283; A9270

== ENCOUNTER 2024-02-08 23:44 | Emergency (ER) | payer SELFPAY ==
[2024-02-08 23:59] VITALS: BP 149/77; PULSE 80
[2024-02-09] MEDS: Colchicine 0.6 MG Tab PO ONE ×2 (00:07→00:10)
[2024-02-09] MEDS ORDERED: Colchicine 0.6 MG Tab PO SCH (09:00)
== END 2024-02-09 00:15 | disposition home or self-care (01) ==
LOC: VM.ED 23:44
DX: M10.9 Gout, unspecified (principal); Z88.8 Allergy status to other drugs, medicaments and biological substances; Z88.0 Allergy status to penicillin; Z90.49 Acquired absence of other specified parts of digestive tract
CPT/HCPCS: 99283; A9270

== ENCOUNTER 2024-05-03 09:16 | Emergency (ER) | payer SELFPAY ==
[2024-05-03 09:27] VITALS: BP 127/80; PULSE 85
[2024-05-03] MEDS: Colchicine 0.6 MG Tab PO ONE (09:41)
== END 2024-05-03 09:40 | disposition home or self-care (01) ==
LOC: VM.ED 09:16
DX: M10.072 Idiopathic gout, left ankle and foot (principal); E66.9 Obesity, unspecified; Z88.0 Allergy status to penicillin; Z88.8 Allergy status to other drugs, medicaments and biological substances; Z79.899 Other long term (current) drug therapy; Z90.49 Acquired absence of other specified parts of digestive tract
CPT/HCPCS: 99283; A9270

== ENCOUNTER 2024-05-19 18:58 | Emergency (ER) | payer SELFPAY ==
[2024-05-19 19:49] VITALS: BP 142/76; PULSE 88
[2024-05-19] MEDS: Sulfamethoxazole/Trimethoprim 800-160 MG Tab PO ONE (21:19)
== END 2024-05-19 21:24 | disposition home or self-care (01) ==
LOC: VM.ED 18:58
DX: L03.116 Cellulitis of left lower limb (principal); E66.9 Obesity, unspecified; Z90.49 Acquired absence of other specified parts of digestive tract; Z88.0 Allergy status to penicillin; Z88.6 Allergy status to analgesic agent; Z88.8 Allergy status to other drugs, medicaments and biological substances; Z68.35 Body mass index [BMI] 35.0-35.9, adult
CPT/HCPCS: 99283; A9270

== ENCOUNTER 2024-05-31 10:11 | Emergency (ER) | payer SELFPAY ==
[2024-05-31 10:22] VITALS: BP 125/71; PULSE 83
[2024-05-31] MEDS ORDERED: Ibuprofen 200 MG Tab PO ONE (10:31)
[2024-05-31] MEDS: Colchicine 0.6 MG Tab PO ONE (10:32)
== END 2024-05-31 10:29 | disposition home or self-care (01) ==
LOC: VM.ED 10:11
DX: M10.9 Gout, unspecified (principal); J45.909 Unspecified asthma, uncomplicated; E66.9 Obesity, unspecified; Z88.8 Allergy status to other drugs, medicaments and biological substances; Z88.6 Allergy status to analgesic agent; Z88.0 Allergy status to penicillin
CPT/HCPCS: 99283; A9270-GY

== ENCOUNTER 2024-06-11 12:06 | Emergency (ER) | payer SELFPAY ==
[2024-06-11] MEDS: Ketorolac 30 MG/ML SDV IM ONE (12:21)
[2024-06-11 12:32] VITALS: BP 134/73; PULSE 86
== END 2024-06-11 12:28 | disposition home or self-care (01) ==
LOC: VM.ED 12:06
DX: M10.9 Gout, unspecified (principal); E66.9 Obesity, unspecified; Z88.0 Allergy status to penicillin; Z88.8 Allergy status to other drugs, medicaments and biological substances
CPT/HCPCS: 96372; 99283; J1885

== ENCOUNTER 2024-07-04 23:35 | Emergency (ER) | payer SELFPAY ==
[2024-07-04 23:55] VITALS: BP 135/78; PULSE 92
== END 2024-07-05 00:23 | disposition home or self-care (01) ==
LOC: VM.ED 23:35
DX: R21 Rash and other nonspecific skin eruption (principal); J45.909 Unspecified asthma, uncomplicated; E66.9 Obesity, unspecified; Z68.36 Body mass index [BMI] 36.0-36.9, adult; Z88.8 Allergy status to other drugs, medicaments and biological substances; Z88.6 Allergy status to analgesic agent; Z88.0 Allergy status to penicillin
CPT/HCPCS: 99282; 99283

== ENCOUNTER 2024-09-09 17:21 | Emergency (ER) | payer SELFPAY ==
[2024-09-09 17:32] VITALS: BP 119/68; PULSE 87
[2024-09-09] MEDS: Colchicine 0.6 MG Tab PO ONE (18:25)
[2024-09-09] MEDS: Ketorolac 30 MG/ML SDV IM ONE (18:25)
== END 2024-09-09 18:30 | disposition home or self-care (01) ==
LOC: VM.ED 17:21
DX: M10.9 Gout, unspecified (principal); J45.909 Unspecified asthma, uncomplicated; E66.9 Obesity, unspecified; Z90.49 Acquired absence of other specified parts of digestive tract; Z79.899 Other long term (current) drug therapy; Z88.0 Allergy status to penicillin; Z88.8 Allergy status to other drugs, medicaments and biological substances
CPT/HCPCS: 36415; 84550; 96372; 99283; A9270-GY; J1885

== ENCOUNTER 2024-12-04 20:45 | Emergency (ER) | payer OTHER ==
[2024-12-04] MEDS: Colchicine 0.6 MG Tab PO ONE (21:47)
[2024-12-05 02:05] VITALS: BP 132/78; PULSE 78
== END 2024-12-04 21:56 | disposition home or self-care (01) ==
LOC: VM.ED 20:45
DX: M10.9 Gout, unspecified (principal); Z88.0 Allergy status to penicillin; Z88.8 Allergy status to other drugs, medicaments and biological substances; Z79.899 Other long term (current) drug therapy; Z79.01 Long term (current) use of anticoagulants
CPT/HCPCS: 99283; A9270

== ENCOUNTER 2024-12-25 21:07 | Emergency (ER) | payer MEDICAID ==
[2024-12-25 22:07] VITALS: BP 134/82; PULSE 80
[2024-12-25] MEDS: Colchicine 0.6 MG Tab PO ONE (22:08)
[2024-12-25] MEDS: Acetaminophen/HYDROcodone 325-5 MG Tab PO ONE (22:08)
== END 2024-12-25 22:15 | disposition home or self-care (01) ==
LOC: VM.ED 21:07
DX: M10.9 Gout, unspecified (principal); J45.909 Unspecified asthma, uncomplicated; E66.9 Obesity, unspecified; Z68.35 Body mass index [BMI] 35.0-35.9, adult; Z90.49 Acquired absence of other specified parts of digestive tract; Z88.0 Allergy status to penicillin; Z88.8 Allergy status to other drugs, medicaments and biological substances; Z79.01 Long term (current) use of anticoagulants; Z79.899 Other long term (current) drug therapy
CPT/HCPCS: 99283; A9270

== ENCOUNTER 2025-03-02 19:01 | Emergency (ER) | payer MEDICAID, OTHER ==
[2025-03-02] MEDS: Colchicine 0.6 MG Tab PO ONE (19:25)
[2025-03-02 19:39] VITALS: BP 115/61; PULSE 80
== END 2025-03-02 19:35 | disposition home or self-care (01) ==
LOC: VM.ED 19:01
DX: M10.9 Gout, unspecified (principal); Z88.0 Allergy status to penicillin; Z88.8 Allergy status to other drugs, medicaments and biological substances; Z79.899 Other long term (current) drug therapy; Z79.01 Long term (current) use of anticoagulants
CPT/HCPCS: 99283; A9270-GY

== ENCOUNTER 2025-06-13 09:54 | Emergency (ER) | payer SELFPAY ==
[2025-06-13] MEDS ORDERED: Sodium Chloride 0.9% 10 ML Syringe FLUSH PRN (10:17)
[2025-06-13 10:30] LABS: BASOPHILS ABSOLUTE AUTO 0.0 x10^3/uL (0.0-0.2); BASOPHILS PERCENT AUTO 0.6 % (0.2-1.2); EOSINOPHILS ABSOLUTE AUTO 0.0 x10^3/uL (0.0-0.5); EOSINOPHILS PERCENT AUTO 0.8 % (0.0-4.0); IMMATURE GRAN ABSOLUTE AUTO 0.01 x10^3/uL (0.00-0.07); IMMATURE GRAN PERCENT AUTO 0.20 % (0.00-0.43); LYMPHOCYTES ABSOLUTE AUTO 0.6 x10^3/uL (1.0-4.8); LYMPHOCYTES PERCENT AUTO 12.9 % (25.0-50.0); MONOCYTES ABSOLUTE AUTO 0.3 x10^3/uL (0.0-0.8); MONOCYTES PERCENT AUTO 6.9 % (2.0-11.0); NEUTROPHILS ABSOLUTE AUTO 3.8 x10^3/uL (1.8-7.7); NEUTROPHILS PERCENT AUTO 78.6 % (50.0-80.0); PLATELET COUNT,PLT 152 x10^3/uL (130-400); RED BLOOD CELL COUNT 5.84 x10^6/uL (4.5-6.0); WHITE BLOOD CELL COUNT,WBC 4.8 x10^3/uL (4.0-10.0)
[2025-06-13] MEDS: Lactated Ringers 1,000 ML IV ONE (10:33)
[2025-06-13] MEDS: Ondansetron 4 MG/2 ML SDV IVPUSH ONE (10:33)
[2025-06-13] MEDS: Ketorolac 30 MG/ML SDV IVPUSH ONE (10:35)
[2025-06-13 10:49] LABS: A/G RATIO 0.98; ALANINE AMINOTRANSFERASE,ALT 72 U/L (16-63); ASPARTATE AMNIOTRANSFERASE,AST 60 U/L (15-37); BILIRUBIN TOTAL 1.0 mg/dL (0.2-1.0); BLOOD UREA NITROGEN,BUN 12 mg/dL (7-18); CARBON DIOXIDE,CO2 32 mmol/L (21-32); CHLORIDE,CL 100 mmol/L (98-107); CREATININE 1.5 mg/dL (0.70-1.30); GLUCOSE RANDOM 99 mg/dL (70-99); POTASSIUM,K 4.0 mmol/L (3.5-5.1); PROTEIN TOTAL,TP 8.3 g/dL (6.4-8.2); SODIUM,NA 139 mmol/L (136-145)
[2025-06-13 10:50] LABS: ESTIMATED GFR 63 mL/min (>=60)
[2025-06-13 11:23] LABS: APPEARANCE,URINE CLEAR (CLEAR); GLUCOSE,URINE NEGATIVE (NEGATIVE); OCCULT BLOOD,URINE TRACE-INTACT (NEGATIVE)
[2025-06-13 11:30] LABS: EPITHELIAL CELLS,URINE RARE
[2025-06-13 12:00] VITALS: BP 134/74; PULSE 94
== END 2025-06-13 12:00 | disposition home or self-care (01) ==
LOC: VM.ED 09:54
DX: G44.89 Other headache syndrome (principal); N18.2 Chronic kidney disease, stage 2 (mild); R74.01 Elevation of levels of liver transaminase levels; E66.9 Obesity, unspecified; Z79.899 Other long term (current) drug therapy; Z88.8 Allergy status to other drugs, medicaments and biological substances; Z88.0 Allergy status to penicillin; Z90.49 Acquired absence of other specified parts of digestive tract
CPT/HCPCS: 80053; 81001; 82150; 83690; 83735; 85025; 96361; 96374; 96375; 99284; 99284-25; J1885; J2405; J7120

== ENCOUNTER 2025-06-15 17:47 | Emergency (ER) | payer SELFPAY ==
[2025-06-15] MEDS: Ondansetron 4 MG Tab.DIS PO ONE (18:44)
[2025-06-15] MEDS: Acetaminophen/HYDROcodone 325-5 MG Tab PO ONE (18:44)
[2025-06-15 19:00] VITALS: BP 121/59; PULSE 100
== END 2025-06-15 18:53 | disposition home or self-care (01) ==
LOC: VM.ED 17:47
DX: M10.9 Gout, unspecified (principal); J45.909 Unspecified asthma, uncomplicated; E66.9 Obesity, unspecified; Z68.38 Body mass index [BMI] 38.0-38.9, adult; Z90.49 Acquired absence of other specified parts of digestive tract; Z88.0 Allergy status to penicillin; Z88.8 Allergy status to other drugs, medicaments and biological substances; Z79.01 Long term (current) use of anticoagulants
CPT/HCPCS: 99283; A9270-GY

== ENCOUNTER 2025-07-31 12:42 | Emergency (ER) | payer SELFPAY ==
[2025-07-31 13:48] VITALS: BP 139/71; PULSE 87
== END 2025-07-31 13:40 | disposition home or self-care (01) ==
LOC: VM.ED 12:42
DX: M10.9 Gout, unspecified (principal); J06.9 Acute upper respiratory infection, unspecified; E66.9 Obesity, unspecified; Z88.0 Allergy status to penicillin; Z88.8 Allergy status to other drugs, medicaments and biological substances; Z79.899 Other long term (current) drug therapy; Z90.49 Acquired absence of other specified parts of digestive tract; Z68.35 Body mass index [BMI] 35.0-35.9, adult
CPT/HCPCS: 99283; A9270

== ENCOUNTER 2025-08-23 18:16 | Emergency (ER) | payer SELFPAY ==
[2025-08-23 20:02] VITALS: BP 141/70; PULSE 84
== END 2025-08-23 19:37 | disposition home or self-care (01) ==
LOC: VM.ED 18:16
DX: M1A.0720 Idiopathic chronic gout, left ankle and foot, without tophus (tophi) (principal); Z88.0 Allergy status to penicillin; Z91.018 Allergy to other foods; Z88.8 Allergy status to other drugs, medicaments and biological substances; Z79.899 Other long term (current) drug therapy; Z79.01 Long term (current) use of anticoagulants
CPT/HCPCS: 99283; A9270-GY